=== PATIENT | male | born 1940 | race Caucasian/White ===

== ENCOUNTER 2017-01-23 15:02 | Observation (INO) ==
[2017-01-23] MEDS ORDERED: Tdap (ADACEL) Vaccine 0.5 ML IM ONE (15:23)
--- NOTE | 2017-01-23 15:25 | Emergency Department Note ---
Disposition Clinical Impression: Syncope Qualifiers: Syncope type: unspecified Qualified Code(s): R55 - Syncope and collapse Concussion with loss of consciousness Qualifiers: Encounter type: initial encounter Qualified Code(s): S06.0X9A - Concussion with loss of consciousness of unspecified duration, initial encounter Disposition: Admitted As Inpatient Condition: Fair Forms: ED Satisfaction Letter Head Injury HPI - General Chief complaint: ED Head Injury Stated complaint: Fall, AMS Time Seen by Provider: 01/23/17 15:03 Source: EMS Limitations: no limitations Nursing Notes Reviewed: Yes Vital Signs Reviewed: Yes - History of Present Illness HPI Narrative: Patient is a very pleasant 76-year-old male who was brought here by EMS for head injury. His states they are both at their office [place] he was outside spreading some fertilizer she walked outside to check on him and he was laying down in the driveway unconscious. The patient does not have any recollection of the event or preceding symptoms prior to. 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 Cardiovascular: Denies: chest pain Respiratory: Denies: dyspnea Gastrointestinal: Denies: abdominal pain, nausea Past Medical History - Past Medical History Medical history: Reports: GERD, hypertension, osteoporosis Psychiatric history: Reports: no psych history - Social History Smoking Status: Never smoker Smokeless Tobacco Status: No Alcohol use: Reports: occasionally Drug use: Reports: none Physical Exam - General Limitations: no limitations General appearance: alert, in no apparent distress - Head Head exam: other (Abrasion posterior scalp) - Eye Eye exam: Present: normal appearance, PERRL, EOMI - ENT ENT exam: normal exam, normal oropharynx, mucous membranes moist - Chest Chest inspection: Present: normal inspection, symmetric chest wall rise - Respiratory Respiratory exam: Present: normal lung sounds bilaterally - Cardiovascular Cardiovascular exam: Present: regular rate, normal rhythm, normal heart sounds - Abdominal Exam Abdominal exam: Present: soft, Non-Tender. Absent: tenderness, distention, guarding, rebound, rigidity - Neurological Exam Neurological exam: Present: alert. Absent: oriented X3 (Person and place) - Expanded Neurological Exam Patient oriented to: Present: person, place Speech: Present: fluid speech Motor strength - LUE: 5/5 Motor strength - RUE: 5/5 Motor strength - LLE: 5/5 Motor strength - RLE: 5/5 Coma Scale Eye Opening: Spontaneous Coma Scale Motor Response: Obeys Commands Coma Scale Verbal Response: Confused Coma Scale Total: 14 - Psychiatric Psychiatric exam: Present: normal mood - Skin Skin exam: Present: warm, dry Course Vital Signs Temperature 98.9 F 01/23/17 15:05 Pulse Rate 119 01/23/17 15:05 Respiratory Rate 16 01/23/17 15:05 Blood Pressure 121/72 01/23/17 15:05 O2 Sat by Pulse Oximetry 97 01/23/17 15:05 Temperature 98.9 F 01/23/17 15:05 Pulse Rate 99 01/23/17 16:48 Respiratory Rate 16 01/23/17 16:48 Blood Pressure 122/69 01/23/17 16:48 O2 Sat by Pulse Oximetry 96 01/23/17 16:48 Oxygen Delivery Oxygen Delivery Room Air Head Injury - Differential Diagnosis Differential Diagnosis: Likely: concussion without loss of consciousness, closed head injury, subarachnoid hematoma, postconcussion sydrome, subdural hematoma - Medical Records Medical records reviewed: Yes I reviewed the patient's medical records. - Lab Data Lab results reviewed: Yes I reviewed the patient's lab results. Result diagrams: 01/23/17 15:53 01/23/17 15:53 Lab Results 01/23/17 01/23/17 01/23/17 Range/Units 15:04 15:53 15:53 WBC 8.3 (4.3-11.1) K/mcL RBC 4.73 (4.19-5.50) M/mcL Hgb 13.6 (12.9-16.9) g/dL Hct 42.3 (37.5-50.1) % MCV 89.4 (83.0-100.0) fL MCH 28.8 (28.0-33.3) pg MCHC 32.2 (31.6-35.5) g/dL RDW 12.6 (11.5-14.5) % Plt Count 204 (140-400) K/mcL MPV 9.6 (9.4-12.4) fL Immature Gran % 1.2 (0-4) % Seg Neutrophils % 74.4 % Lymphocytes % 10.8 % Monocytes % 8.1 % Eosinophils % 4.5 % Basophils % 1.0 % Neutrophils # 6.2 (1.6-8.9) K/mcL Lymphocytes # 0.9 (0.6-4.6) K/mcL Monocytes # 0.7 (0.0-1.3) K/mcL Eosinophils # 0.4 (0.0-0.6) K/mcL Basophils # 0.1 (0.0-0.2) K/mcL PT 14.1 H (9.4-12.1) Seconds INR 1.3 APTT 30.2 (26.0-36.0) Seconds Sodium (136-145) mEq/L Potassium (3.5-4.5) mEq/L Chloride (98-109) mEq/L Carbon Dioxide (19-29) mEq/L BUN (8-26) mg/dL Creatinine (0.72-1.25) mg/dL Est GFR ( Amer) (> 60) Est GFR (Non-Af Amer) (> 60) BUN/Creatinine Ratio (6-26) Glucose (70-99) mg/dL POC Glucose 150 H (58-89) Calculated Osmolality (280-300) Calcium (8.6-10.8) mg/dL Troponin I (0-0.03) ng/mL 01/23/17 01/23/17 Range/Units 15:53 15:53 WBC (4.3-11.1) K/mcL RBC (4.19-5.50) M/mcL Hgb (12.9-16.9) g/dL Hct (37.5-50.1) % MCV (83.0-100.0) fL MCH (28.0-33.3) pg MCHC (31.6-35.5) g/dL RDW (11.5-14.5) % Plt Count (140-400) K/mcL MPV (9.4-12.4) fL Immature Gran % (0-4) % Seg Neutrophils % % Lymphocytes % % Monocytes % % Eosinophils % % Basophils % % Neutrophils # (1.6-8.9) K/mcL Lymphocytes # (0.6-4.6) K/mcL Monocytes # (0.0-1.3) K/mcL Eosinophils # (0.0-0.6) K/mcL Basophils # (0.0-0.2) K/mcL PT (9.4-12.1) Seconds INR APTT (26.0-36.0) Seconds Sodium 139 (136-145) mEq/L Potassium 3.4 L (3.5-4.5) mEq/L Chloride 106 (98-109) mEq/L Carbon Dioxide 28 (19-29) mEq/L BUN 14 (8-26) mg/dL Creatinine 1.19 (0.72-1.25) mg/dL Est GFR ( Amer) > 60 (> 60) Est GFR (Non-Af Amer) 59 L (> 60) BUN/Creatinine Ratio 12 (6-26) Glucose 159 H (70-99) mg/dL POC Glucose (58-89) Calculated Osmolality 292 (280-300) Calcium 9.4 (8.6-10.8) mg/dL Troponin I 0.01 (0-0.03) ng/mL - Radiology Data Radiology results reviewed: Yes I reviewed the patient's radiology results. - EKG Data EKG attestation: Yes I reviewed and interpreted this EKG. EKG shows normal: sinus rhythm Rate: normal Rhythm: PAC's
[2017-01-23 16:10] LABS: Basophils # 0.1 K/mcL (0.0-0.2); Eosinophils # 0.4 K/mcL (0.0-0.6); Eosinophils % 4.5 %; Hematocrit 42.3 % (37.5-50.1); Hemoglobin 13.6 g/dL (12.9-16.9); Immature Granulocytes % 1.2 % (0-4); Lymphocytes # 0.9 K/mcL (0.6-4.6); Lymphocytes % 10.8 %; Mean Corpuscular HGB Conc 32.2 g/dL (31.6-35.5); Mean Corpuscular Hemoglobin 28.8 pg (28.0-33.3); Mean Corpuscular Volume 89.4 fL (83.0-100.0); Mean Platelet Volume 9.6 fL (9.4-12.4); Monocytes # 0.7 K/mcL (0.0-1.3); Monocytes % 8.1 %; Neutrophils # 6.2 K/mcL (1.6-8.9); Platelet Count 204 K/mcL (140-400); Red Blood Count 4.73 M/mcL (4.19-5.50); Red Cell Distribution Width 12.6 % (11.5-14.5); Segmented Neutrophils % 74.4 %
[2017-01-23 16:20] LABS: INR 1.3; Prothrombin Time 14.1 Seconds (9.4-12.1)
[2017-01-23 16:23] LABS: Activated Partial Thrombo Time 30.2 Seconds (26.0-36.0)
[2017-01-23 16:24] LABS: BUN/Creatinine Ratio 12 (6-26); Blood Urea Nitrogen 14 mg/dL (8-26); Calcium 9.4 mg/dL (8.6-10.8); Carbon Dioxide 28 mEq/L (19-29); Chloride 106 mEq/L (98-109); Glucose 159 mg/dL (70-99); Osmolality,Calculated 292 (280-300); Potassium 3.4 mEq/L (3.5-4.5); Sodium 139 mEq/L (136-145); eGFR For African Americans > 60 (> 60); eGFR For Non-African Americans 59 (> 60)
[2017-01-23] MEDS ORDERED: traMADol 50 MG TABLET PO PRN (21:07)
[2017-01-23] MEDS ORDERED: *HR* LORazepam 0.5 MG TABLET PO PRN (21:07)
--- NOTE | 2017-01-23 21:12 | Internal Med History&Physical ---
Date of Encounter: 01/23/17 Time of Encounter: 21:11 Assessment and Plan (1) Concussion with loss of consciousness Current visit: Yes Status: Acute CT head is negative with no neurological deficits. CT head is negative for intracranial bleeding. Monitor. Consider neurology consultation Qualifiers: Encounter type: initial encounter Qualified Code(s): S06.0X9A - Concussion with loss of consciousness of unspecified duration, initial encounter (2) Syncope Current visit: Yes Status: Acute Likely mechanical fall based on pt's description. However, he had LOC. Telemetry monitoring; Echocardiogram. Trend troponins. Qualifiers: Syncope type: unspecified Qualified Code(s): R55 - Syncope and collapse (3) Scalp injury Current visit: Yes Status: Acute Cleaning and dressing in the ER. protective dressing Qualifiers: Encounter type: initial encounter Qualified Code(s): S09.90XA - Unspecified injury of head, initial encounter (4) Abnormal urinalysis Current visit: Yes Status: Acute Urine culture is pending. Pt is asymptomatic at this time - hold antibiotics until the cultures. (5) Hypertension Current visit: Yes Status: Chronic Continue home medications Qualifiers: Hypertension type: essential hypertension Qualified Code(s): I10 - Essential (primary) hypertension (6) GERD (gastroesophageal reflux disease) Current visit: Yes Status: Chronic Continue home medications Qualifiers: Esophagitis presence: esophagitis presence not specified Qualified Code(s) : K21.9 - Gastro-esophageal reflux disease without esophagitis Internal Medicine - H&P: HPI Chief complaint: Fall with LOC Admitted From: Emergency Dept Plans for Post Hospital Care: Home History of present illness: Mr. Velez is a 76 year old male with history of GERD, hypertension apparently fell backwards at their office while he was spreading fertilizer and stepped on a stone and lost balance. He denies feeling dizziness, lightheadedness, chest pain, headache, blurry vision prior to the fall. He apparently lost consciousness after the fall and was found by his . He reports being a little confused after he woke up, and remembers what happened subsequently. He reports some dull, non-radiating pain in the occipital region, at the site of scalp injury. He denies any denies headache, blurry vision, nausea, vomiting, weakness of extremities, urinary and bowel incontinence, chest pain, shortness of breath, palpitations, abdominal pain, dysuria, hematuria, change in bowel habits. He was evaluated in the emergency department and was reported to have scalp abration and had dressing done. CT head reported Scalp soft tissue swelling at the vertex. Atrophy and mild small vessel ischemic disease. CT scan of the C-spine reported Multilevel degenerative disc disease, without gross fracture. He is admitted to the hospitalist service for further management. Past Med Surg Social Fam HX - Past Medical History Medical history: GERD, hypertension, osteoporosis Psychiatric history: no psych history - Social History Smoking Status: Never smoker Smokeless Tobacco Status: No Alcohol use: occasionally Drug use: none - Additional Family History Additional family history: Family history reviewed and noncontributory to current admission Internal Medicine - H&P: Meds Azelastine 0.1% Nasal [place] [Astelin] 1 spray PRN 01/23/17 [History] Azelastine/Fluticasone [Dymista Nasal [place]] 1 spray PRN PRN 01/23/17 [History] Budesonide/Formoterol 80/4.5 [Symbicort 80/4.5] 1 PRN 01/23/17 [History] LORazepam [Ativan] 0.5 mg PO BID PRN 01/23/17 [History] Sucralfate [Carafate] 1 gm PO TID 01/23/17 [History] Tramadol HCl [Ultram] 1 tab PO DAILY PRN 01/23/17 [History] Tums 01/23/17 [History] Allergies No Known Allergies Allergy (Verified 12/18/15 15:13) All Systems PM: A 10-system review of systems was performed and is negative for pertinent findings except as documented above in the HPI. - Constitutional Vitals: Temp Pulse Resp BP Pulse Ox 98.2 F 91 20 143/84 95 01/23/17 18:35 01/23/17 18:35 01/23/17 18:35 01/23/17 18:35 01/23/17 18:35 Exam: General: Not in acute distress at the time of my evaluation HEENT: Oral mucosa is moist. No conjunctival palor or scleral icterus. Dressing on the scalp present Neck: No obvious neck swellings Lungs: Clear to auscultation Cardiac: Regular rate and rhythm. No significant murmurs Abdomen: Soft, non tender. Bowel sounds present Genitourinary: No schwartz catheter Neurological: Alert and oriented. No gross localizing deficits Psych: Not aggressive or agitated Extremities: no significant leg edema Skin: No generalized rash Internal Med - H&P Results - Labs CBC & Chem 7: 01/23/17 15:53 01/23/17 15:53 - EKG Data -: EKG Interpreted by Myself EKG shows normal: sinus rhythm Rate: tachycardia - EKG Data EKG comments: Left anterior fascicular block. EKG fron 08/2013 shows similar changes 01/24/17 05:34 - Impressions ITS Impressions Cervical Spine CT 01/23/17 15:04 IMPRESSION: Multilevel degenerative disc disease, without gross fracture. D/ / Jacques Garcia MD / Jacques Garcia MD Interpreting Provider: Jacques Garcia MD Head CT 01/23/17 15:04 IMPRESSION: Scalp soft tissue swelling at the vertex. Atrophy and mild small vessel ischemic disease. D/ / Jacques Garcia MD / Jacques Garcia MD Interpreting Provider: Jacques Garcia MD
[2017-01-23] MEDS ORDERED: Naloxone 0.4 MG/ML INJ IVP PRN (21:32)
[2017-01-23 23:39] LABS: Bilirubin,Urine Negative (Negative); Blood,Urine Small (Negative); Clarity,Urine Clear (Clear); Color,Urine Yellow (Yellow); Glucose,Urine (UA) Normal (Normal); Ketones,Urine Negative (Negative); Leukocyte Esterase,Urine Small (Negative); Nitrite,Urine Negative (Negative); PH,Urine 6.5 pH Units (5.0-8.0); Protein,Urine Negative (Neg-Trace); Specific Gravity,Urine 1.025 (1.010-1.025); Urobilinogen,Urine Normal (Normal)
[2017-01-24 00:02] LABS: Bacteria,Urine Few per hpf (None-Few); Hyaline Casts,Urine Few per lpf (None-Few); Mucus,Urine Moderate (Few); Squamous Epithelial Cell,Urine Few per lpf (None-Few); WBC,Urine 0-3 per hpf (0-3)
[2017-01-24 05:45] LABS: Hemoglobin A1C 4.7 %
[2017-01-24 05:55] LABS: Alanine Aminotransferase 11 Units/L (0-55); Albumin 3.2 g/dL (3.5-5.0); Alkaline Phosphatase 81 Units/L (38-126); Aspartate Amino Transferase 20 Units/L (5-34); BUN/Creatinine Ratio 14 (6-26); Bilirubin,Total 0.8 mg/dL (0.2-1.2); Blood Urea Nitrogen 14 mg/dL (8-26); Calcium 9.6 mg/dL (8.6-10.8); Carbon Dioxide 32 mEq/L (19-29); Chloride 106 mEq/L (98-109); Globulin 3.1 g/dL (2.4-3.5); Glucose 95 mg/dL (70-99); Osmolality,Calculated 288 (280-300); Potassium 3.5 mEq/L (3.5-4.5); Sodium 139 mEq/L (136-145); Total Protein 6.3 g/dL (6.0-8.3); eGFR For African Americans > 60 (> 60); eGFR For Non-African Americans > 60 (> 60)
[2017-01-24 07:27] VITALS: BP 159/87
[2017-01-24] MEDS: Sucralfate 1 GM TABLET PO SCH ×2 (08:14→15:07)
[2017-01-24] MEDS ORDERED: Budesonide/Formoterol 80/4.5 MDI IH SCH (13:00)
--- NOTE | 2017-01-24 15:40 | Electrocardiograph Report ---
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
--- NOTE | 2017-01-24 16:23 | Discharge Summary ---
Date of Encounter: 01/24/17 Time of Encounter: 10:30 (and 1530) - Discharge Diagnosis (1) Concussion with loss of consciousness Priority: Primary Status: Acute Comments: Cervical spine CT negative for acute processes. Head CT negative. Patient with abrasion to his scalp, no active bleeding. Wound dressing changed at time of discharge. Fall appears to be mechanical in nature with resultant loss of consciousness. Patient is alert and oriented 3 with no focal neurological deficits present on examination. Seen and evaluated by physical therapy who surmised he had no needs. ITS Impressions Cervical Spine CT 01/23/17 15:04 IMPRESSION: Multilevel degenerative disc disease, without gross fracture. D/ / Jacques Garcia MD / Jacques Garcia MD Interpreting Provider: Jacques Garcia MD Head CT 01/23/17 15:04 IMPRESSION: Scalp soft tissue swelling at the vertex. Atrophy and mild small vessel ischemic disease. D/ / Jacques Garcia MD / Jacques Garcia MD Interpreting Provider: Jacques Garcia MD Qualifiers: Encounter type: initial encounter Qualified Code(s): S06.0X9A - Concussion with loss of consciousness of unspecified duration, initial encounter (2) Syncope Priority: Primary Status: Resolved Qualifiers: Syncope type: unspecified Qualified Code(s): R55 - Syncope and collapse (3) Scalp injury Priority: Primary Status: Acute Comments: Removed bandage on day of discharge and scalp abrasion wound cleansed. Covered with Adaptic, no active bleeding. Recommend keeping open two air after 2 days. Qualifiers: Encounter type: initial encounter Qualified Code(s): S09.90XA - Unspecified injury of head, initial encounter (4) Abnormal urinalysis Priority: Primary Status: Acute Comments: Patient denies dysuria, likely contaminant. Patient is white instructed to call her primary care provider's office on Tuesday to obtain urine culture results. Low suspicion for urinary tract infection. (5) Hypertension Priority: Secondary Status: Chronic Comments: Controlled until day of discharge when he became borderline hypertensive. Of note, patient was anxious to go home on day of discharge. Recommend close outpatient follow-up and daily blood pressure checks at home. Qualifiers: Hypertension type: essential hypertension Qualified Code(s): I10 - Essential (primary) hypertension (6) GERD (gastroesophageal reflux disease) Priority: Secondary Status: Chronic Comments: Denies current symptoms. Qualifiers: Esophagitis presence: esophagitis presence not specified Qualified Code(s) : K21.9 - Gastro-esophageal reflux disease without esophagitis - Discharge Medications Home Medications: Azelastine 0.1% Nasal [place] [Astelin] 1 spray NS DAILY 01/23/17 [History] Azelastine/Fluticasone [Dymista Nasal [place]] 1 spray NS DAILY PRN 01/23/17 [ History] Calcium Carbonate [Tums] 1,000 mg PO Q4HR PRN 01/23/17 [History] LORazepam [Ativan] 0.5 mg PO BID PRN 01/23/17 [History] Sucralfate [Carafate] 1 gm PO TID 01/23/17 [History] Tramadol HCl [Ultram] 50 mg PO BID PRN 01/23/17 [History] Albuterol Sulfate [Albuterol Inhaler] 2 puff IH Q4-6H PRN 01/24/17 [History] Budesonide/Formoterol 160/4.5 [Symbicort 160/4.5] 2 puff IH BIDR 01/24/17 [ History] Losartan/HCTZ [Hyzaar 50-12.5 Tablet] 1 tab PO DAILY 01/24/17 [History] Tamsulosin [Flomax] 0.4 mg PO DAILY 01/24/17 [History] Allergies/Adverse Reactions: Allergies No Known Allergies Allergy (Verified 12/18/15 15:13) Procedures/tests Complete & Pending: Procedures Performed prior 72 hours Category Date Time Status EV echocardiogram Routine Y 01/24/17 04:58 Completed Date of admission: 01/23/17 17:34 Primary care physician: Alex Yusuf MD Consults: 01/23/17 21:40 PT [Consult to Physical Therapy] [CONS] Routine Comment: Evaluate, develop and implement POC Reason for Consult: Fall 01/24/17 04:58 Consult to Neurology [CONS] Routine Consulting Provider: [facility] Reason for Consult: Head injury with loss of consciousness Call Completed: No Discharging clinician: Leanne Shelton Anticipated date of discharge: 01/24/17 - Patient Status Disposition: Home, Self-Care Condition: Fair Functional capacity at discharge: uses cane/walker Overall status at discharge: patient is progressing back to baseline - Discharge Instructions Follow Up With: Alex Yusuf MD [Primary Care Provider] - Additional Instructions: Follow-up with primary care provider within one to 2 weeks, call primary care office in 2 days for urine culture results - Diet and Activity Activity: increase activity as tolerated Diet: low salt diet Hospital course: Mr. Velez is a 76 year old male with past medical history of GERD, hypertension. Patient presented to the emergency department chief complaint of fall with loss of consciousness. Patient stating he fell backwards at his office where he was spreading fertilizer when he stepped on a stone and lost his balance. He denies presyncopal sensations, dizziness, lightheadedness, chest pain, headache, or blurred vision prior to the fall. After the fall, he apparently lost consciousness and was found by his . His reports patient was a little bit confused after he woke up but he remembers what happened. Patient reporting dull, nonradiating pain today in the occipital region at the site of the scalp injury. He denies any blurred vision, nausea, vomiting, weakness. Workup in the emergency department unremarkable. Cervical spine CT negative. Head CT negative. Patient had an abrasion to the scalp. He was admitted to the hospitalist service for further evaluation and management. He remained alert and oriented 3 with no focal neurological weakness is present on examination during this admission. Echocardiogram unremarkable with ejection fraction of 50%. He did have a slightly abnormal urinalysis but denied dysuria. He was instructed to call his primary care provider 2 days after discharge for urine culture results. Low suspicion for a urinary tract infection. Patient stating he does not have a history of urinary tract infections. Scalp dressing removed and changed on day of discharge. Abrasion noted. No active bleeding. Patient was seen and evaluated by physical therapy recommended returning to his prior living situation. Patient does have a cane at home and he has been instructed to use it over the next week or so as he recovers. Neurology was on board during this admission who recommended outpatient follow-up and also using a cane for a week or so while he recovers. He was discharged home in stable condition with close outpatient follow-up recommended. ITS Impressions Cervical Spine CT 01/23/17 15:04 IMPRESSION: Multilevel degenerative disc disease, without gross fracture. D/ / Jacques Garcia MD / Jacques Garcia MD Interpreting Provider: Jacques Garcia MD Head CT 01/23/17 15:04 IMPRESSION: Scalp soft tissue swelling at the vertex. Atrophy and mild small vessel ischemic disease. D/ / Jacques Garcia MD / Jacques Garcia MD Interpreting Provider: Jacques Garcia MD Echocardiogram impressions: LVEF 50%. Borderline low systolic function, not all segments were visualized. Hematocrit citric left ventricular hypertrophy. Mild left ventricular diastolic dysfunction. No pulmonary hypertension. No significant valvular dysfunction. - Time Spent with Patient Total time spent providing and/or coordinating discharge services: - Constitutional Vitals: Temp Pulse Resp BP Pulse Ox 98.4 F 81 16 159/87 94 01/24/17 07:26 01/24/17 07:26 01/24/17 07:26 01/24/17 07:26 01/24/17 08:19 General appearance: Present: A&O X 3, pleasant, no acute distress, answers questions appropriately - Head Head exam: Present: atraumatic, normocephalic - Eye Eye exam: Present: PERRL, conjuntiva pink, sclera anicteric Pupils: Present: PERRL - Neck Neck exam general surgery: Present: supple, trachea midline. Absent: lymphadenopathy - Respiratory Respiratory exam: Present: CTAB. Absent: accessory muscle use, rales, respiratory distress, rhonchi, wheezes - Cardiovascular Cardiovascular exam: Present: RRR, +S1, +S2. Absent: diastolic murmur, gallop, rubs, systolic murmur - GI/Abdominal GI/Abdominal exam: Present: normal bowel sounds, soft, no peritoneal signs. Absent: distended, tenderness - Extremities Exam Extremities exam: Present: warm, radial pulses palpable and symetrical. Absent : calf tenderness, cyanotic, pedal edema - Neurological Exam Neurological exam: Present: alert, CN II-XII intact, normal gait, oriented X3, no focal deficits, strengths equal and symetr throughout. Absent: pronater drift, facial droop, speech deficit - Skin Skin exam: Present: dry, intact, normal color, warm - Expanded Skin Exam Type of lesion: Present: abrasion Distribution of rash: Present: head Description of rash: Present: discharge (serous), erythematous, tenderness - VTE Reasons for not Prescribing Prophylaxis: Treatment not Indicated - Low risk for VTE
--- NOTE | 2017-01-24 16:45 | Neurology - Consult Note ---
Date of Encounter: 01/24/17 Time of Encounter: 16:42 Assessment and Plan (1) Concussion with loss of consciousness Current Visit: Yes Status: Acute I agree that this gentleman has experienced a minor concussion. He did have an altered level of consciousness on the scene however, has improved in the subsequent hours back to baseline. I would recommend however that he and released with a cane for the next week or so just to improve his gait stability. However this point in time he is alert and oriented 3 and lucid. He may be discharged home with your discretion. I did inform his that if he begins to experience lethargy or any alteration from his baseline that she should return to the ED for further assessment at once. Qualifiers: Encounter type: initial encounter Qualified Code(s): S06.0X9A - Concussion with loss of consciousness of unspecified duration, initial encounter History of Present Illness HPI: Mr. Velez is a 76 year old male who was seen for neurologic consultation secondary to a fall with subsequent concussion. 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 His consciousness was altered for a few moments. His was working nearby came to his age and he was very confused on the scene. He was confused for most of the day yesterday. However he is now close to being normal. Appetite is awake alert and lucid history. He does have some tenderness at the crown of his head secondary to scalp contusion. CT scan of the head did reveal a soft tissue injury at the vertex however did not reveal any evidence of brain injury. Past Med Surg Social Fam HX - Past Medical History Medical history: GERD, hypertension, osteoporosis Psychiatric history: no psych history - Social History Smoking Status: Never smoker Smokeless Tobacco Status: No Alcohol use: occasionally Drug use: none Medications and Allergies Azelastine 0.1% Nasal [place] [Astelin] 1 spray NS DAILY 01/23/17 [History] Azelastine/Fluticasone [Dymista Nasal [place]] 1 spray NS DAILY PRN 01/23/17 [ History] Calcium Carbonate [Tums] 1,000 mg PO Q4HR PRN 01/23/17 [History] LORazepam [Ativan] 0.5 mg PO BID PRN 01/23/17 [History] Sucralfate [Carafate] 1 gm PO TID 01/23/17 [History] Tramadol HCl [Ultram] 50 mg PO BID PRN 01/23/17 [History] Albuterol Sulfate [Albuterol Inhaler] 2 puff IH Q4-6H PRN 01/24/17 [History] Budesonide/Formoterol 160/4.5 [Symbicort 160/4.5] 2 puff IH BIDR 01/24/17 [ History] Losartan/HCTZ [Hyzaar 50-12.5 Tablet] 1 tab PO DAILY 01/24/17 [History] Tamsulosin [Flomax] 0.4 mg PO DAILY 01/24/17 [History] Allergies No Known Allergies Allergy (Verified 12/18/15 15:13) All Systems: A 10-system review of systems was performed and is negative for pertinent findings except as documented above in the HPI. Review of Systems: A 10 point review of systems is consistent with a history of present illness and otherwise negative. Physical Examination - Vital Signs Vital Signs: Initial Vital Signs Temp Pulse Resp BP Pulse Ox 98.9 F 119 16 121/72 97 01/23/17 15:05 01/23/17 15:05 01/23/17 15:05 01/23/17 15:05 01/23/17 15:05 - Neurologic Sensorimotor examination: intact Detailed motor examination: grossly full strength in all extremities Reflex and gait examination: intact Reflexes: Biceps: 2+, Triceps: 2+, Brachioradialis: 2+, Patella: 2+, Achilles: 1 + Mental Status Examination: awake, alert, oriented to person, oriented to place, oriented to time, follows commands appropriately, answers questions appropriately, no agnosia, no aphasia, no aproxia Cranial nerve examination: PERRL, EOMI, visual howell intact, corneal reflexes brisk symmetrically, sensory to face intact, mastication intact, no facial asymmetry is present, no dysarthria, hearing is intact symmetrically, soft palate elevates bilaterally upon phonation, gag reflex intact, flexes SCM and trapezius muscles symmetrically with full power, tongue protrudes midline, no atrophy or facial fasiculations present Cerebellar examination: no dysmetria, performs finger to nose and heel to lynn symmetrically without ataxia, no gait ataxia, no truncal ataxia, no difficulty with rapid alternating movements Results - Laboratory Findings CBC and BMP: 01/23/17 15:53 01/24/17 04:48 Abnormal lab findings: Abnormal lab results PT 14.1 Seconds (9.4-12.1) H 01/23/17 15:53 Carbon Dioxide 32 mEq/L (19-29) H 01/24/17 04:48 POC Glucose 150 (58-89) H 01/23/17 15:04 Albumin 3.2 g/dL (3.5-5.0) L 01/24/17 04:48 Albumin/Globulin Ratio 1.0 (1.1-2.2) L 01/24/17 04:48 Urine Blood Small (Negative) H 01/23/17 22:13 Ur Leukocyte Esterase Small (Negative) H 01/23/17 22:13 Urine Microscopic RBC 5-15 per hpf (0-3) H 01/23/17 22:13 Urine Mucus Moderate (Few) H 01/23/17 22:13 Ur Culture Indicated? YES (NO) A 01/23/17 22:13 Consult Discharge Plan - Plan Additional Instructions: Follow-up with primary care provider within one to 2 weeks, call primary care office in 2 days for urine culture results Referrals: Alex Yusuf MD [Primary Care Provider] -
--- NOTE | 2017-01-26 10:00 | Event Note ---
Date of Encounter: 01/26/17 Time of Encounter: 09:50 Patient's urine culture result come back shows Pseudomonas aerugino. Patient was called. Patient said some people from the ER has called him already and ask him to take prescription from ER. Patient has minimal symptoms. Patient was educated to drink plenty of water. If he did not get prescription, he will go to see his PCP for prescription.
== END 2017-01-24 16:57 | disposition home or self-care (01) ==
LOC: 3BNU 15:02 → EMEROO 15:02 → 3BNU 18:18
PROVIDERS: ADMIT Internal Medicine; ATTEND Nurse Practitioner Family

== ENCOUNTER 2017-06-08 13:24 | Inpatient (IN) ==
[2017-06-08 14:41] LABS: Basophils # 0.1 K/mcL (0.0-0.2); Basophils % 0.7 %; Eosinophils # 0.5 K/mcL (0.0-0.6); Eosinophils % 4.5 %; Hematocrit 42.6 % (37.5-50.1); Hemoglobin 13.8 g/dL (12.9-16.9); Immature Granulocytes % 0.8 % (0-4); Lymphocytes # 0.8 K/mcL (0.6-4.6); Lymphocytes % 8.3 %; Mean Corpuscular HGB Conc 32.4 g/dL (31.6-35.5); Mean Corpuscular Hemoglobin 29.8 pg (28.0-33.3); Mean Platelet Volume 9.8 fL (9.4-12.4); Monocytes # 0.6 K/mcL (0.0-1.3); Neutrophils # 8.1 K/mcL (1.6-8.9); Platelet Count 217 K/mcL (140-400); Red Blood Count 4.63 M/mcL (4.19-5.50); Red Cell Distribution Width 12.8 % (11.5-14.5); Segmented Neutrophils % 79.7 %
[2017-06-08 14:47] LABS: BUN/Creatinine Ratio 11 (6-26); Blood Urea Nitrogen 11 mg/dL (8-26); Calcium 9.3 mg/dL (8.6-10.8); Carbon Dioxide 27 mEq/L (19-29); Chloride 105 mEq/L (98-109); Glucose 143 mg/dL (70-99); Osmolality,Calculated 290 (280-300); Potassium 3.5 mEq/L (3.5-4.5); Sodium 139 mEq/L (136-145); eGFR For African Americans > 60 (> 60); eGFR For Non-African Americans > 60 (> 60)
--- NOTE | 2017-06-08 14:51 | Emergency Department Note ---
Disposition Clinical Impression: Femoral neck fracture Qualifiers: Encounter type: initial encounter Fracture type: closed Laterality: right Qualified Code(s): S72.001A - Fracture of unspecified part of neck of right femur, initial encounter for closed fracture Syncope Qualifiers: Syncope type: unspecified Qualified Code(s): R55 - Syncope and collapse Disposition: Admitted As Inpatient Condition: Good Time of Disposition: 16:56 General Adult HPI - General Chief complaint: ED Fall Stated complaint: fall Time Seen by Provider: 06/08/17 13:26 Source: patient, EMS Mode of arrival: EMS Limitations: no limitations Nursing Notes Reviewed: Yes Vital Signs Reviewed: Yes - History of Present Illness HPI Narrative: 77-year-old male presenting to the emergency department via EMS after a fall. He states he is having right shoulder pain, right hip pain and right leg pain. Patient states he was walking up a set of concrete stairs at work when he slipped and fell landing on his right side. Patient's is at bedside. Patient denies passing out or hitting his head but according to the when she was called by his coworkers they stated they found him outside Of the staircase after he fell and that he was passed out. Patient and state he is on a blood thinner but does not know what it is. I looked at all of his medication list and cannot find any specific medication. On physical exam patient does have right hip and right posterior shoulder pain. He denies any other pain at this time. He denies any chest pain, shortness of breath, dizziness. Pain Scale: 9 - Related Data Home Medications Medication Instructions Recorded Confirmed Azelastine 0.1% Nasal [place] 1 spray NS DAILY 01/23/17 06/08/17 [Astelin] Azelastine/Fluticasone [Dymista 1 spray NS DAILY PRN 01/23/17 06/08/17 Nasal [place]] Calcium Carbonate [Tums] 1,000 mg PO Q4HR PRN 01/23/17 06/08/17 LORazepam [Ativan] 0.5 mg PO BID PRN 01/23/17 06/08/17 Sucralfate [Carafate] 1 gm PO BID 01/23/17 06/08/17 Tramadol HCl [Ultram] 50 mg PO BID PRN 01/23/17 06/08/17 Albuterol Sulfate [Albuterol 2 puff IH Q4-6H PRN 01/24/17 06/08/17 Inhaler] Losartan/HCTZ [Hyzaar 50-12.5 1 tab PO DAILY 01/24/17 06/08/17 Tablet] Tamsulosin [Flomax] 0.4 mg PO DAILY 01/24/17 06/08/17 Ascorbate Calcium [Vitamin C] 500 mg PO DAILY 06/08/17 06/08/17 Aspirin [Lo-Dose Aspirin EC] 81 mg PO DAILY 06/08/17 06/08/17 Budesonide/Formoterol 80/4.5 2 puff IH BID 06/08/17 06/08/17 [Symbicort 80/4.5] Cholecalciferol (D-3) [Vitamin D] 2,000 unit PO DAILY 06/08/17 06/08/17 Famotidine [Pepcid] 40 mg PO DAILY 06/08/17 06/08/17 Ferrous Gluconate 324 mg PO DAILY 06/08/17 06/08/17 Fluticasone Propionate Nasal 1 spray NS DAILY 06/08/17 06/08/17 [Flonase] Montelukast [Singulair] 10 mg PO DAILY 06/08/17 06/08/17 Omeprazole [PriLOSEC] 20 mg PO DAILY 06/08/17 06/08/17 Allergies Allergy/AdvReac Type Severity Reaction Status Date / Time No Known Allergies Allergy Verified 06/08/17 17:01 All systems ED: reviewed and negative except as stated. Constitutional: Denies: fever, chills Eyes: Reports: as per HPI ENT ED: Reports: as per HPI Cardiovascular: Denies: chest pain, palpitations Respiratory: Denies: cough, dyspnea, wheezes Gastrointestinal: Denies: abdominal pain, nausea, vomiting Genitourinary: Reports: as per HPI Musculoskeletal: Reports: other (Hip, shoulder pain) Integumentary: Reports: abrasion Neurological: Reports: as per HPI Psychiatric: Reports: as per HPI Endocrine: Reports: as per HPI Hematological/Lymphatic: Reports: as per HPI Allergic/Immunologic: Reports: as per HPI Past Medical History - Past Medical History Attestation: Yes The following information was validated with the patient. Medical history: Reports: GERD, hypertension, osteoporosis Psychiatric history: Reports: no psych history - Social History Smoking Status: Never smoker Smokeless Tobacco Status: No Alcohol use: Reports: occasionally Drug use: Reports: none Physical Exam - General Limitations: no limitations General appearance: alert, in no apparent distress - Head Head exam: atraumatic, normocephalic, normal inspection - Eye Eye exam: Present: normal appearance, PERRL, EOMI. Absent: scleral icterus, conjunctival injection - Neck Neck exam: Present: normal inspection, full ROM. Absent: tenderness, meningismus - Chest Chest inspection: Present: normal inspection, symmetric chest wall rise. Absent : tenderness, rash - Respiratory Respiratory exam: Present: normal lung sounds bilaterally. Absent: respiratory distress, wheezes - Cardiovascular Cardiovascular exam: Present: regular rate (I appreciate the tachycardia noted in the triage notes although the patient is not tachycardic in the room when I had examined him), normal rhythm, normal heart sounds - Abdominal Exam Abdominal exam: Present: soft, Non-Tender. Absent: distention, guarding, rebound - Extremities Exam Extremities exam: Present: full ROM, other (Tenderness noted over the right greater trochanter and mid right femur. Superficial abrasion noted over the right knee but no tenderness. Patient's bilateral lower extremity muscle strength 5 out of 5. Bilateral lower extremity sensation intact. Bilateral lower extremity distal pulses 2+. Patient's right leg is slightly shortened and externally rotated. Patient has tenderness on palpation to the posterior scapular spine. No obvious abrasion, dislocation or crepitus.) - Neurological Exam Neurological exam: Present: alert, oriented X3 - Psychiatric Psychiatric exam: Present: normal affect, normal mood - Skin Skin exam: Present: warm, intact Course Course Narrative: 69-year-old male presented to the emergency department after a fall. He states he has right hip and leg pain. According to patient did pass out and possibly could have hit his head. Unknown if the patient is actually on anticoagulation or not. Due to unknown mechanism of fall we will obtain a CT of the head, cervical spine, thoracic spine and lumbar spine. We will also obtain an x-ray of the right hip, pelvis, femur and right shoulder. We will also obtain basic lab work along with an EKG to determine patient's cause of syncope. Patient is alert and oriented 3 in the room with stable vital signs at this time. He agrees with this plan. Disposition pending these results. - Reevaluation(s) Reevaluation #1: Patient has a right femoral neck fracture. I spoke with the orthopedic surgeon on-call Dr. Montes who agrees to see the patient as an inpatient. His like us to defer admission to the hospitalist. I spoke with the hospitalist on-call Dr. Colbert who agrees to accept the patient at this time. Patient is alert and oriented 3 in the room. Pain under control with IV morphine. Vital signs are stable. He agreed to this plan. Vital Signs Temperature 98.6 F 06/08/17 13:25 Pulse Rate 111 06/08/17 13:25 Respiratory Rate 18 06/08/17 13:25 Blood Pressure 173/90 06/08/17 13:25 O2 Sat by Pulse Oximetry 97 06/08/17 13:25 Temperature 98.6 F 06/08/17 13:25 Pulse Rate 87 06/08/17 16:55 Respiratory Rate 16 06/08/17 16:55 Blood Pressure 153/87 06/08/17 16:55 O2 Sat by Pulse Oximetry 97 06/08/17 16:55 Oxygen Delivery Oxygen Delivery Room Air Medical Decision Making - Medical Records Medical records reviewed: Yes I reviewed the patient's medical records. - Lab Data Lab results reviewed: Yes I reviewed the patient's lab results. Result diagrams: 06/08/17 14:27 06/08/17 14:27 Lab Results 06/08/17 06/08/17 06/08/17 Range/Units 14:27 14:27 14:27 WBC 10.2 (4.3-11.1) K/mcL RBC 4.63 (4.19-5.50) M/mcL Hgb 13.8 (12.9-16.9) g/dL Hct 42.6 (37.5-50.1) % MCV 92.0 (83.0-100.0) fL MCH 29.8 (28.0-33.3) pg MCHC 32.4 (31.6-35.5) g/dL RDW 12.8 (11.5-14.5) % Plt Count 217 (140-400) K/mcL MPV 9.8 (9.4-12.4) fL Immature Gran % 0.8 (0-4) % Seg Neutrophils % 79.7 % Lymphocytes % 8.3 % Monocytes % 6.0 % Eosinophils % 4.5 % Basophils % 0.7 % Neutrophils # 8.1 (1.6-8.9) K/mcL Lymphocytes # 0.8 (0.6-4.6) K/mcL Monocytes # 0.6 (0.0-1.3) K/mcL Eosinophils # 0.5 (0.0-0.6) K/mcL Basophils # 0.1 (0.0-0.2) K/mcL PT 13.0 H (9.4-12.1) Seconds INR 1.2 APTT 30.5 (26.0-36.0) Seconds Sodium 139 (136-145) mEq/L Potassium 3.5 (3.5-4.5) mEq/L Chloride 105 (98-109) mEq/L Carbon Dioxide 27 (19-29) mEq/L BUN 11 (8-26) mg/dL Creatinine 0.98 (0.72-1.25) mg/dL Est GFR ( Amer) > 60 (> 60) Est GFR (Non-Af Amer) > 60 (> 60) BUN/Creatinine Ratio 11 (6-26) Glucose 143 H (70-99) mg/dL Calculated Osmolality 290 (280-300) Calcium 9.3 (8.6-10.8) mg/dL Troponin I (0-0.03) ng/mL Urine Color (Yellow) Urine Clarity (Clear) Urine pH (5.0-8.0) pH Units Ur Specific [place] (1.010-1.025) Urine Protein (Neg-Trace) mg/dL Urine Glucose (UA) (Normal) mg/dL Urine Ketones (Negative) mg/dL Urine Blood (Negative) Urine Nitrite (Negative) Urine Bilirubin (Negative) Urine Urobilinogen (Normal) mg/dL Ur Leukocyte Esterase (Negative) Ur Culture Indicated? (NO) 06/08/17 06/08/17 Range/Units 14:27 15:30 WBC (4.3-11.1) K/mcL RBC (4.19-5.50) M/mcL Hgb (12.9-16.9) g/dL Hct (37.5-50.1) % MCV (83.0-100.0) fL MCH (28.0-33.3) pg MCHC (31.6-35.5) g/dL RDW (11.5-14.5) % Plt Count (140-400) K/mcL MPV (9.4-12.4) fL Immature Gran % (0-4) % Seg Neutrophils % % Lymphocytes % % Monocytes % % Eosinophils % % Basophils % % Neutrophils # (1.6-8.9) K/mcL Lymphocytes # (0.6-4.6) K/mcL Monocytes # (0.0-1.3) K/mcL Eosinophils # (0.0-0.6) K/mcL Basophils # (0.0-0.2) K/mcL PT (9.4-12.1) Seconds INR APTT (26.0-36.0) Seconds Sodium (136-145) mEq/L Potassium (3.5-4.5) mEq/L Chloride (98-109) mEq/L Carbon Dioxide (19-29) mEq/L BUN (8-26) mg/dL Creatinine (0.72-1.25) mg/dL Est GFR ( Amer) (> 60) Est GFR (Non-Af Amer) (> 60) BUN/Creatinine Ratio (6-26) Glucose (70-99) mg/dL Calculated Osmolality (280-300) Calcium (8.6-10.8) mg/dL Troponin I 0.01 (0-0.03) ng/mL Urine Color Yellow (Yellow) Urine Clarity Clear (Clear) Urine pH 7.5 (5.0-8.0) pH Units Ur Specific [place] 1.012 (1.010-1.025) Urine Protein Negative (Neg-Trace) mg/dL Urine Glucose (UA) Normal (Normal) mg/dL Urine Ketones Negative (Negative) mg/dL Urine Blood Negative (Negative) Urine Nitrite Negative (Negative) Urine Bilirubin Negative (Negative) Urine Urobilinogen Normal (Normal) mg/dL Ur Leukocyte Esterase Negative (Negative) Ur Culture Indicated? NO (NO) - Radiology Data Radiology results reviewed: Yes I reviewed the patient's radiology results. Femur X-Ray 06/08/17 13:44 IMPRESSION: Right femoral neck fracture. D/ / Gonzalez Eubanks / Gonzalez Eubanks Interpreting Provider: Gonzalez Eubanks Pelvis X-Ray 06/08/17 13:44 IMPRESSION: Acute right femoral neck fracture as above. D/ / Indio Huang MD / Indio Huang MD Interpreting Provider: Indio Huang MD Shoulder X-Ray 06/08/17 13:44 IMPRESSION: No fracture or malalignment. D/ / Gonzalez Eubanks / Gonzalez Eubanks Interpreting Provider: Gonzalez Eubanks Cervical Spine CT 06/08/17 13:46 IMPRESSION: 1. No evidence of an acute fracture in the cervical spine. 2. Air-fluid level in the left sphenoid sinus, correlate with signs of acute infection. D/ / 06/08/2017 15:37:37 Nayan Peterson MD / Kim Orellana Interpreting Provider: Nayan Peterson MD Chest X-Ray 06/08/17 13:46 IMPRESSION: No acute cardiopulmonary process. D/ / Josue Torres MD / Josue Torres MD Interpreting Provider: Josue Torres MD Head CT 06/08/17 13:46 IMPRESSION: No acute intracranial abnormality. D/ / Chris Kingsley MD / Chris Kingsley MD Interpreting Provider: Chris Kingsley MD Lumbar Spine CT 06/08/17 13:46 IMPRESSION: No acute osseous abnormality. Multilevel degenerative changes of the lumbar spine. Osteopenia. D/ / 06/08/2017 15:39:12 Josue Torres MD / Kim Orellana Interpreting Provider: Josue Torres MD Thoracic Spine CT 06/08/17 13:46 IMPRESSION: No acute fracture or traumatic malalignment of the thoracic spine. D/ / Choco Storey MD / Choco Storey MD Interpreting Provider: Choco Storey MD - EKG Data EKG #1 EKG attestation: Yes I reviewed and interpreted this EKG. EKG results narrative: Sinus rhythm with PACs and PVCs. Left anterior fascicular block. Ventricular rate 92 bpm. QRS 110, QTc 4:30. No signs of acute ST segment elevation or ischemia. When compared to previous EKG completed on 01/23/2017 new PACs noted. Attestation Statement - Attestation Attestation: I examined this patient and my medical decision-making was reviewed with the Resident Physician, Dr. Oliveros. I agree with the documented findings, disposition and treatment plan as described except to the extent set forth below. She is a 77-year-old white male who presents to the emergency department by EMS from his place of employment after he sustained a fall today. Patient states that he was walking up a set of concrete steps into his workplace and lost his footing and fell onto his right side. Patient is complaining on arrival of right hip pain and right thigh pain and right shoulder pain since the fall. Patient has deformity noted to the right hip with shortening and external rotation suspicious for right hip fracture. Patient denies any headache, no neck pain or back pain, no chest pain or pressure no shortness of breath no back or flank pain. When arrives she was concerned because she states that she spoke with his coworkers by phone and that they were concerned that they felt that he had passed out, causing him to fall. Patient denies this. Patient denies being on any blood thinners. Vital signs stable on arrival. Agree patient's physical exam findings as documented. Patient was placed on lunchroom monitor and continuous pulse ox IV was established and labs were drawn and sent and an EKG was obtained due to the questionable syncope. Patient with a sinus rhythm with occasional PACs and PVCs but no acute ischemic changes were appreciated. Patient had a lab evaluation including a chest x-ray, right shoulder right hip and pelvis plain films were ordered as well as CT imaging of his head and C-spine thoracic spine and lumbar spine. Patient was placed in cervical collar for C-spine immobilization. Patient was provided IV pain medicine and nausea medicine. All of patient's labs are within normal limits. All of patient's imaging is unremarkable with the exception of his hip and pelvis which shows a right femoral neck fracture. We went ahead and placed Cro[place] catheter due to patient' s injury and paged orthopedics. Patient has not seen an orthopedic surgeon in the past for any reason. Discuss results with family and explained need for admission for further evaluation and surgical management. Case was discussed with Dr. Mayes and he was consulate from the ED. Case was also discussed with Dr. Montes who accepted the patient for admission and will be consult on by orthopedics. Patient's remained hemodynamically stable and resting comfortably at bedside at this time.
[2017-06-08 15:18] LABS: INR 1.2
[2017-06-08 15:21] LABS: Activated Partial Thrombo Time 30.5 Seconds (26.0-36.0)
[2017-06-08] MEDS ORDERED: Ondansetron 4 MG/2 ML VIAL IVP ONE (15:26)
[2017-06-08] MEDS ORDERED: *HR* Morphine 2 MG/ML SYRINGE IVP ONE ×3 (15:26→20:29)
[2017-06-08 15:45] LABS: Bilirubin,Urine Negative (Negative); Blood,Urine Negative (Negative); Clarity,Urine Clear (Clear); Color,Urine Yellow (Yellow); Glucose,Urine (UA) Normal (Normal); Ketones,Urine Negative (Negative); Leukocyte Esterase,Urine Negative (Negative); Nitrite,Urine Negative (Negative); PH,Urine 7.5 pH Units (5.0-8.0); Protein,Urine Negative (Neg-Trace); Specific Gravity,Urine 1.012 (1.010-1.025); Urobilinogen,Urine Normal (Normal)
[2017-06-08] MEDS ORDERED: Ondansetron 4 MG/2 ML VIAL IVP PRN (20:45)
[2017-06-08] MEDS ORDERED: Acetaminophen 325 MG TABLET PO PRN (20:45)
[2017-06-08] MEDS ORDERED: Naloxone 0.4 MG/ML INJ IVP PRN (20:45)
[2017-06-08] MEDS ORDERED: FLUTICASONE NS PRN (20:50)
[2017-06-08] MEDS ORDERED: AZELASTINE NS PRN (20:50)
[2017-06-08] MEDS ORDERED: *HR* LORazepam 0.5 MG TABLET PO PRN (20:50)
[2017-06-08] MEDS: Budesonide/Formoterol 80/4.5 MDI IH SCH (21:16)
[2017-06-08] MEDS: Sucralfate 1 GM TABLET PO SCH (21:28)
[2017-06-08] MEDS: 0.9 % Sodium Chloride w KCl 20 MEQ/1,000 ML MLS IVC SCH (21:28)
--- NOTE | 2017-06-08 22:14 | Internal Med History&Physical ---
Date of Encounter: 06/08/17 Time of Encounter: 20:10 Assessment and Plan (1) Femoral neck fracture Current visit: Yes Status: Acute 1. Consult orthopedics for surgical repair. However, I would postpone surgery until carotid Dopplers are performed and cardiology sees patient in consultation regarding possible cardiac cause for suspected syncope. 2. Pain control with IV Morphine and/or oral Oxycodone. 3. Will need PT/OT consults after surgery and likely inpatient rehab. Qualifiers: Encounter type: initial encounter Fracture type: closed Laterality: right Qualified Code(s): S72.001A - Fracture of unspecified part of neck of right femur, initial encounter for closed fracture (2) Syncope Current visit: Yes Status: Suspected 1. Patient denies syncope but and office staff both report syncopal spell. 2. Recent ECHO reviewed. 3. Will order Carotid Dopplers and monitor glucose for 24 hours. 4. Consult cardiology regarding possible atrial fibrillation vs other dysrhythmia. Qualifiers: Syncope type: unspecified Qualified Code(s): R55 - Syncope and collapse (3) Hypertension Current visit: No Status: Chronic 1. Continue home meds as appropriate. 2. Monitor BP and adjust medications as necessary. Qualifiers: Hypertension type: essential hypertension Qualified Code(s): I10 - Essential (primary) hypertension (4) GERD (gastroesophageal reflux disease) Current visit: No Status: Chronic 1. Continue home PPI and H2 blockers. 2. Patient denies any GI blood loss for over 1 year. Qualifiers: Esophagitis presence: esophagitis presence not specified Qualified Code(s) : K21.9 - Gastro-esophageal reflux disease without esophagitis (5) DVT prophylaxis Current visit: Yes Status: Acute 1. Heparin SQ. Internal Medicine - H&P: HPI Chief complaint: s/p fall; hip fracture; possible syncope Admitted From: Emergency Dept Plans for Post Hospital Care: Transfer Inp Rehab Fac History of present illness: Mr. Velez is a 77 year old male who presents to the ER today after sustaining a fall at his office at work today. He denies any syncope or presyncopal symptoms leading to his fall. He states it was a mechanical fall as he slipped on a concrete step going up to his office earlier today. He denies any lightheadedness, dizziness, palpitations, chest pain, or shortness of breath. However, there are reports that his office staff found him on the steps passed out after the fall. He denies any loss of consciousness, however. His is present and she confirms the concerns of his office staff regarding possible syncope. Of note, he was admitted in January of this year for a similar situation involving a fall and possible syncope. He had an echocardiogram done in January which revealed LVH and likely hypertensive heart disease. He had significant ectopy on his telemetry and EKGs then suggesting possible atrial fibrillation. However, it appeared to be more likely sinus rhythm with frequent ectopy. He arjun never been diagnosed with atrial fibrillation or any heart disease other than blood pressure problems. He did not have any imaging of his CAROTID vasculature in the past. ER today revealed patient to have fracture of his right hip. Other imaging studies were all negative for any acute injury or fracture. I did confirm with patient, his , and his daughter that he is not on any anticoagulation whatsoever. He takes a baby aspirin every other day. Past Med Surg Social Fam HX - Past Medical History Attestation: Yes The following information was validated with the patient. Source: patient, old records reviewed, obtained from family Medical history: GERD, GI bleed (~ 1 year ago -- gastric ulcer), hypertension, osteoporosis Psychiatric history: no psych history - Past Surgical History Surgical History: other (EGD) - Social History Smoking Status: Never smoker Smokeless Tobacco Status: No Alcohol use: occasionally Drug use: none Current living situation: Home, With Family Activity Level: Independent ambulation Recent Out of Country Travel Within the Last 8 Weeks: No - Family History Mother Living Status: Hx Family Cardiac Disorders: Yes (Hypertension) Father Living Status: Hx Family Neurologic Disorders: Yes (Parkinsons) Internal Medicine - H&P: Meds Azelastine 0.1% Nasal [place] [Astelin] 1 spray NS DAILY 01/23/17 [History] Azelastine/Fluticasone [Dymista Nasal [place]] 1 spray NS DAILY PRN 01/23/17 [ History] Calcium Carbonate [Tums] 1,000 mg PO Q4HR PRN 01/23/17 [History] LORazepam [Ativan] 0.5 mg PO BID PRN 01/23/17 [History] Sucralfate [Carafate] 1 gm PO BID 01/23/17 [History] Tramadol HCl [Ultram] 50 mg PO BID PRN 01/23/17 [History] Albuterol Sulfate [Albuterol Inhaler] 2 puff IH Q4-6H PRN 01/24/17 [History] Losartan/HCTZ [Hyzaar 50-12.5 Tablet] 1 tab PO DAILY 01/24/17 [History] Tamsulosin [Flomax] 0.4 mg PO DAILY 01/24/17 [History] Ascorbate Calcium [Vitamin C] 500 mg PO DAILY 06/08/17 [History] Aspirin [Lo-Dose Aspirin EC] 81 mg PO DAILY 06/08/17 [History] Budesonide/Formoterol 80/4.5 [Symbicort 80/4.5] 2 puff IH BID 06/08/17 [History ] Cholecalciferol (D-3) [Vitamin D] 2,000 unit PO DAILY 06/08/17 [History] Famotidine [Pepcid] 40 mg PO DAILY 06/08/17 [History] Ferrous Gluconate 324 mg PO DAILY 06/08/17 [History] Fluticasone Propionate Nasal [Flonase] 1 spray NS DAILY 06/08/17 [History] Montelukast [Singulair] 10 mg PO DAILY 06/08/17 [History] Omeprazole [PriLOSEC] 20 mg PO DAILY 06/08/17 [History] 3 Allergy/AdvReac Type Severity Reaction Status Date / Time No Known Allergies Allergy Verified 06/08/17 17:01 - Constitutional Constitutional: no chills, no fever(s), no malaise - EENT Eyes: no blurry vision, no change in vision Ears: no decreased hearing, no tinnitus Nose, mouth and throat: no nasal congestion, no nasal discharge, no sinus pressure, no sore throat - Cardiovascular Cardiovascular ROS IM: no chest pain, no dyspnea, no dyspnea on exertion, no edema, no irregular heart rhythm, no lightheadedness, no orthopnea, no palpitations, no syncope (patient denies, but reports) - Respiratory Respiratory: no cough, no hemoptysis, no dyspnea on exertion, no wheezing, no chest congestion, no excessive phlegm production - Gastrointestinal Gastrointestinal: no abdominal pain, no diarrhea, no hematemesis, no hematochezia, no melena, no nausea, no vomiting - Genitourinary Genitourinary ROS male: no dysuria, no flank pain, no hematuria - Musculoskeletal Musculoskeletal ROS IM: other (severe pain in right hip), no back pain - Integumentary Integumentary IM: no rash, no jaundice - Neurological Neurological ROS: frequent falls (twice since January -- requiring hospitalization) , no dizziness, no focal weakness, no weakness - Psychiatric Psychiatric: no anxiety, no depression - Endocrine Endocrine IM: no polydipsia, no polyuria - Allergic/Immunologic Allergic/Immunologic: no wheezing, no GI upset with certain foods - Constitutional Vitals: Temp Pulse Resp BP Pulse Ox 98.9 F 86 16 165/86 94 06/08/17 19:01 06/08/17 19:01 06/08/17 21:16 06/08/17 19:01 06/08/17 21:16 General appearance: Present: cooperative, mild distress (from hip pain), A&O X 3 , pleasant, answers questions appropriately - Head Head exam: Present: atraumatic, normal inspection - Expanded Head Exam Head exam expanded: Absent: abrasion, contusion, general tenderness - Eye Eye exam: Present: EOMI, normal appearance, PERRL. Absent: scleral icterus Pupils: Present: normal accommodation - ENT ENT exam: Present: mucous membranes dry, normal exam, normal oropharynx - Neck Neck exam general surgery: Present: full ROM, supple, trachea midline. Absent: tenderness, nuchal rigidity - Expanded Neck Exam Neck exam: Absent: carotid bruit - Respiratory Respiratory exam: Present: CTAB. Absent: chest wall tenderness, rales, respiratory distress, rhonchi, wheezes - Cardiovascular Cardiovascular exam: Present: RRR, +S1, +S2. Absent: diastolic murmur, JVD, systolic murmur Additional comments: frequent ectopic beats noted on auscultation - GI/Abdominal GI/Abdominal exam: Present: normal bowel sounds, soft. Absent: guarding, hepatomegaly, mass, rebound, splenomegaly, tenderness - Extremities Exam Extremities exam: Present: normal capillary refill, tenderness (right hip), warm , radial pulses palpable and symmetrical. Absent: calf tenderness, pedal edema - Back Exam Back exam: Absent: CVA tenderness (L), CVA tenderness (R) - Neurological Exam Neurological exam: Present: alert, CN II-XII intact, oriented X3, no focal deficits, strengths equal and symetr throughout - Psychiatric Psychiatric exam: Present: normal affect, normal mood - Skin Skin exam: Present: dry, warm. Absent: rash Internal Med - H&P Results - Labs CBC & Chem 7: 06/08/17 14:27 06/08/17 14:27 - EKG Data -: EKG Interpreted by Myself - EKG Data Prior EKG available for review: yes When compared to previous EKG: there is no significant change EKG comments: 06/08/17 22:20 sinus rhythm with frequent PAC/PVC's vs atrial fibrillation - Diagnostic Studies Chest x-ray Status: image reviewed by me (negative)
[2017-06-09] MEDS: *HR* OxyCODONE Immed Rel 5 MG TABLET PO PRN ×3 (00:21→18:06)
[2017-06-09] MEDS: *HR* Morphine 2 MG/ML SYRINGE IVP PRN ×4 (03:05→15:27)
[2017-06-09] MEDS: *HR* Heparin 5,000 UNIT/ML VIAL SQ SCH ×2 (05:21→18:06)
[2017-06-09 05:41] LABS: Basophils # 0.1 K/mcL (0.0-0.2); Basophils % 0.7 %; Eosinophils # 0.6 K/mcL (0.0-0.6); Eosinophils % 4.9 %; Hematocrit 42.7 % (37.5-50.1); Immature Granulocytes % 0.3 % (0-4); Lymphocytes # 1.1 K/mcL (0.6-4.6); Lymphocytes % 9.6 %; Mean Corpuscular HGB Conc 32.8 g/dL (31.6-35.5); Mean Corpuscular Hemoglobin 29.7 pg (28.0-33.3); Mean Corpuscular Volume 90.5 fL (83.0-100.0); Monocytes # 0.9 K/mcL (0.0-1.3); Monocytes % 8.2 %; Neutrophils # 8.6 K/mcL (1.6-8.9); Platelet Count 201 K/mcL (140-400); Red Blood Count 4.72 M/mcL (4.19-5.50); Red Cell Distribution Width 12.8 % (11.5-14.5); Segmented Neutrophils % 76.3 %
[2017-06-09 05:42] LABS: INR 1.3; Prothrombin Time 13.9 Seconds (9.4-12.1)
[2017-06-09 05:44] LABS: Activated Partial Thrombo Time 32.5 Seconds (26.0-36.0)
[2017-06-09 06:25] LABS: Alanine Aminotransferase 14 Units/L (0-55); Albumin 3.2 g/dL (3.5-5.0); Albumin/Globulin Ratio 0.9 (1.1-2.2); Alkaline Phosphatase 77 Units/L (38-126); Aspartate Amino Transferase 22 Units/L (5-34); BUN/Creatinine Ratio 12 (6-26); Bilirubin,Total 1.1 mg/dL (0.2-1.2); Blood Urea Nitrogen 10 mg/dL (8-26); Calcium 8.9 mg/dL (8.6-10.8); Carbon Dioxide 24 mEq/L (19-29); Chloride 107 mEq/L (98-109); Globulin 3.4 g/dL (2.4-3.5); Glucose 108 mg/dL (70-99); Osmolality,Calculated 286 (280-300); Sodium 138 mEq/L (136-145); Total Protein 6.6 g/dL (6.0-8.3); eGFR For African Americans > 60 (> 60); eGFR For Non-African Americans > 60 (> 60)
[2017-06-09] MEDS: Budesonide/Formoterol 80/4.5 MDI IH SCH ×2 (07:56→20:25)
--- NOTE | 2017-06-09 08:21 | Internal Med Progress Note ---
Date of Encounter: 06/09/17 Time of Encounter: 08:19 - Assessment and plan (1) Syncope Current Visit: No Status: Resolved Assessment and plan: cardiology consulted for syncopebut patient denies syncope Qualifiers: Syncope type: unspecified Qualified Code(s): R55 - Syncope and collapse (2) Hypertension Current Visit: No Status: Chronic Assessment and plan: chronic will resume home meds Qualifiers: Hypertension type: essential hypertension Qualified Code(s): I10 - Essential (primary) hypertension (3) GERD (gastroesophageal reflux disease) Current Visit: No Status: Chronic Assessment and plan: chronic resume home meds Qualifiers: Esophagitis presence: esophagitis presence not specified Qualified Code(s) : K21.9 - Gastro-esophageal reflux disease without esophagitis (4) Femoral neck fracture Current Visit: Yes Status: Acute Assessment and plan: floowing fall ortho is consulted for surgical evaluation Qualifiers: Encounter type: initial encounter Fracture type: closed Laterality: right Qualified Code(s): S72.001A - Fracture of unspecified part of neck of right femur, initial encounter for closed fracture - Subjective Interval history: Patient with history of hypertension, GERD, patient apparently slipped and fell in the office and sustained a fracture of femoral neck of the right hip. Patient denies syncope no loss of consciousness. Patient awaiting orthopedic evaluation for the hip fracture for possible surgery. Denies any chest pain no shortness of breath no palpitation only symptoms right hip pain. - Constitutional Vitals: Temp Pulse Resp BP Pulse Ox 98.8 F 104 16 146/83 96 06/09/17 06:34 06/09/17 06:34 06/09/17 06:34 06/09/17 06:34 06/09/17 06:34 General appearance: Present: cooperative, mild distress (from hip pain), A&O X 3 , pleasant, answers questions appropriately - Eye Eye exam: Present: PERRL, conjuntiva pink, sclera anicteric Pupils: Present: PERRL - Neck Neck exam general surgery: Present: supple, trachea midline. Absent: lymphadenopathy - Respiratory Respiratory exam: Present: CTAB. Absent: accessory muscle use, rales, rhonchi, wheezes - Cardiovascular Cardiovascular exam: Present: RRR, +S1, +S2. Absent: diastolic murmur, gallop, rubs, systolic murmur - GI/Abdominal GI/Abdominal exam: Present: normal bowel sounds, soft, no peritoneal signs. Absent: distended, tenderness - Extremities Exam Extremities exam: Present: tenderness Internal Medicine: Result - Labs CBC & Chem 7: 06/09/17 05:17 06/09/17 05:17 Labs: Short CBC 06/09/17 Range/Units 05:17 WBC 11.3 H (4.3-11.1) K/mcL Hgb 14.0 (12.9-16.9) g/dL Hct 42.7 (37.5-50.1) % Plt Count 201 (140-400) K/mcL Neutrophils # 8.6 (1.6-8.9) K/mcL BMP 06/09/17 05:17 Sodium 138 Potassium 4.0 Chloride 107 Carbon Dioxide 24 BUN 10 Creatinine 0.83 Glucose 108 H Calcium 8.9 Liver Function 06/09/17 Range/Units 05:17 Total Bilirubin 1.1 (0.2-1.2) mg/dL AST 22 (5-34) Units/L ALT 14 (0-55) Units/L Alkaline Phosphatase 77 (38-126) Units/L Albumin 3.2 L (3.5-5.0) g/dL - ABG Interpretation ABG results: PT/INR, D-dimer PT 13.9 Seconds (9.4-12.1) H 06/09/17 05:17 Consult Discharge Plan - Plan Referrals: Alex Yusuf MD [Primary Care Provider] -
[2017-06-09] MEDS ORDERED: Azelastine 0.1% Nasal Spray 30 ML BOTTLE NS SCH (09:00)
[2017-06-09] MEDS ORDERED: Famotidine 20 MG TABLET PO SCH (09:00)
[2017-06-09] MEDS ORDERED: Fluticasone Propionate Nasal 50 MCG/SPRAY BOTTLE NS SCH (09:00)
[2017-06-09] MEDS ORDERED: Ascorbic Acid 500 MG TABLET PO SCH (09:00)
[2017-06-09] MEDS ORDERED: Aspirin Enteric Coated 81 MG Tablet PO SCH (09:00)
[2017-06-09] MEDS ORDERED: Cholecalciferol (D-3) 1,000 UNIT TABLET PO SCH (09:00)
[2017-06-09] MEDS: Sucralfate 1 GM TABLET PO SCH ×2 (09:32→20:18)
--- NOTE | 2017-06-09 10:13 | Cardiology Consult Note ---
<Michael Watts - Last Filed: 06/09/17 16:19> Date of Encounter: 06/09/17 Time of Encounter: 09:52 Assessment and Plan (1) Recurrent falls Current Visit: Yes Status: Acute Patient on continuous cardiac telemetry. Monitoring for arrhythmic tracings through [facility]. Carotid doppler ordered by primary team. No history of stroke, unless significant bilateral stenosis, unlikely source of syncope. Echocardiogram 01/24/2017 shows LVEF 50%, mild diastolic dysfunction, no valvular defects. Plan: Workup for cardiogenic/vascular syncope through cardiac telemetry reading through [facility], consider new echocardiogram though no new anginal equivalents. R hemiarthroplasty with ortho planned for early afternoon tomorrow. Patient low-moderate risk. Recommend patient follow-up outpatient, [facility], will discuss more holter/event monitor options then. (2) Femoral neck fracture Current Visit: Yes Status: Acute R femoral neck fracture. Pt low-moderate risk. No hx NV/CAD/Stroke. H&H stable. Never-smoker. METs > 4. Ortho plans to perform R hemiarthroplasty tomorrow afternoon. 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 Chronic condition, takes Losartan Potassium-HCTZ 50-12.5 MG Tablet 1 tablet Once a day Qualifiers: Hypertension type: essential hypertension Qualified Code(s): I10 - Essential (primary) hypertension Discussion w patient/family: The assessment and plan as outlined above was discussed with the patient and/or family members who expressed understanding and agreement. All questions were answered. Thank you for involving us in the care of your patient. Please call with any questions. History of Present Illness Consult date: 06/09/17 Requesting physician: Neil Morocho Consult reason: Arrhythmia eval, pre-surg risk strat Chief complaint: Fall, R hip pain History of present illness: Mr. Velez is a 77 year old male, no known history of NV/CAD/Stroke, never- smoker, who presented via EMS to ED yesterday after fall, witnessed by coworkers at his [employer] office, patient stepping up concrete stairs, denies loss of consciousness. CT pelvis shows R femoral neck fracture. Other CT imaging unremarkable. Has recent history of prior fall with hospitalization in January of this year. Echocardiogram at the time showed LVEF 50%, mild diastolic dysfunction, no valvular abnormalities. Cardiology consulted for possibility of as of yet unknown arrhythmia/cardiac cause in relation to fall. Past Med Surg Social Fam HX - Past Medical History Medical history: GERD, GI bleed (~ 1 year ago -- gastric ulcer), hypertension, osteoporosis Psychiatric history: no psych history - Past Surgical History Surgical History: other (EGD) - Social History Smoking Status: Never smoker Smokeless Tobacco Status: No Alcohol use: occasionally Drug use: none - Family History Mother Living Status: Hx Family Cardiac Disorders: Yes (Hypertension) Father Living Status: Hx Family Neurologic Disorders: Yes (Parkinsons) Medications and Allergies Azelastine 0.1% Nasal [place] [Astelin] 1 spray NS DAILY 01/23/17 [History] Azelastine/Fluticasone [Dymista Nasal [place]] 1 spray NS DAILY PRN 01/23/17 [ History] Calcium Carbonate [Tums] 1,000 mg PO Q4HR PRN 01/23/17 [History] LORazepam [Ativan] 0.5 mg PO BID PRN 01/23/17 [History] Sucralfate [Carafate] 1 gm PO BID 01/23/17 [History] Tramadol HCl [Ultram] 50 mg PO BID PRN 01/23/17 [History] Albuterol Sulfate [Albuterol Inhaler] 2 puff IH Q4-6H PRN 01/24/17 [History] Losartan/HCTZ [Hyzaar 50-12.5 Tablet] 1 tab PO DAILY 01/24/17 [History] Tamsulosin [Flomax] 0.4 mg PO DAILY 01/24/17 [History] Ascorbate Calcium [Vitamin C] 500 mg PO DAILY 06/08/17 [History] Aspirin [Lo-Dose Aspirin EC] 81 mg PO DAILY 06/08/17 [History] Budesonide/Formoterol 80/4.5 [Symbicort 80/4.5] 2 puff IH BID 06/08/17 [History ] Cholecalciferol (D-3) [Vitamin D] 2,000 unit PO DAILY 06/08/17 [History] Famotidine [Pepcid] 40 mg PO DAILY 06/08/17 [History] Ferrous Gluconate 324 mg PO DAILY 06/08/17 [History] Fluticasone Propionate Nasal [Flonase] 1 spray NS DAILY 06/08/17 [History] Montelukast [Singulair] 10 mg PO DAILY 06/08/17 [History] Omeprazole [PriLOSEC] 20 mg PO DAILY 06/08/17 [History] 3 Allergy/AdvReac Type Severity Reaction Status Date / Time No Known Allergies Allergy Verified 06/08/17 17:01 All Systems Review: A 10-system review of systems was performed and is negative for pertinent findings except as documented above in the HPI. - Constitutional Constitutional: no headache(s), no weakness - Cardiovascular Cardiovascular: no chest pain at rest, no dyspnea on exertion, no lightheadedness, no palpitations - Musculoskeletal Musculoskeletal: other (R hip pain, limited ROM) Physical Examination Vital Signs, Last 4 Hours Temp Pulse Resp BP Pulse Ox 06/09/17 06:34 98.8 F 104 16 146/83 96 General: Other (a&o x3; conversant) HEENT: Atraumatic, Other (no contusions head) Neck: Other (no audible bruits, no JVD) Cardiac: Other (RRR, S1/S2, no S3/S4, no murmur) Lungs: No Wheeze, Rales, Rhonchi Extremities: Other (normal pedal pulses bilaterally, no numbness/tingling; limited ROM R LE) Results 06/09/17 05:17 06/09/17 05:17 Lab Results 06/09/17 06/09/17 06/09/17 05:17 05:17 05:17 WBC 11.3 H Hgb 14.0 Hct 42.7 Plt Count 201 INR 1.3 APTT 32.5 Sodium 138 Potassium 4.0 Chloride 107 Carbon Dioxide 24 BUN 10 Creatinine 0.83 Glucose 108 H Calcium 8.9 Magnesium 2.0 Total Bilirubin 1.1 AST 22 ALT 14 Alkaline Phosphatase 77 Consult Discharge Plan - Plan Referrals: Alex Yusuf MD [Primary Care Provider] - <Garo Ramires - Last Filed: 06/09/17 17:10> Date of Encounter: 06/09/17 - Attending Attestation I examined this patient and my medical decision-making was reviewed with the Resident Physician. I agree with the documented findings, disposition and treatment plan as described except to the extent set forth below. Admitted with mechanical fall, denies syncope. ECHO normal. PVCs, PACs noted. No anginal symptoms. Could proceed with surgery, further workup as outpt. (EM vs. LOOP) Assessment and Plan Discussion w patient/family: The assessment and plan as outlined above was discussed with the patient and/or family members who expressed understanding and agreement. All questions were answered. Thank you for involving us in the care of your patient. Please call with any questions. History of Present Illness History of present illness: Mr. Velez is a 77 year old male All Systems Review: A 10-system review of systems was performed and is negative for pertinent findings except as documented above in the HPI. Physical Examination Vital Signs, Last 4 Hours Temp Pulse Resp BP Pulse Ox 06/09/17 15:04 99.2 F 97 18 161/83 94 Results 06/09/17 05:17 06/09/17 05:17 Lab Results 06/09/17 06/09/17 06/09/17 05:17 05:17 05:17 WBC 11.3 H Hgb 14.0 Hct 42.7 Plt Count 201 INR 1.3 APTT 32.5 Sodium 138 Potassium 4.0 Chloride 107 Carbon Dioxide 24 BUN 10 Creatinine 0.83 Glucose 108 H Calcium 8.9 Magnesium 2.0 Total Bilirubin 1.1 AST 22 ALT 14 Alkaline Phosphatase 77
--- NOTE | 2017-06-09 11:19 | Orthopedic Consult Note ---
Date of Encounter: 06/09/17 Time of Encounter: 09:00 Assessment and Plan (1) Displaced fracture of right femoral neck Current Visit: Yes Status: Acute Right hip femoral neck fracture, [place] 4 type. The patient is currently undergoing a cardiac workup. He is scheduled for a right hip hemiarthroplasty. The risks, benefits and alternatives were discussed the patient. Informed consent was obtained. We also discussed his expected postoperative management. History of Present Illness Chief complaint: Right hip pain HPI: Mr. Velez is a 77 year old male who is a community ambulator, yesterday sustaining a right hip fracture. The patient states he was trying to open the door to his office with a diez when he slipped on the step, falling over and breaking his right hip. The patient states he did not have dizziness prior to the fall, and denies loss of consciousness after the fall. He reports no chest pain or shortness of breath. Does report moderate pain to the right hip. The patient lives at home with his . Past Med Surg Social Fam HX - Past Medical History Medical history: GERD, GI bleed (~ 1 year ago -- gastric ulcer), hypertension, osteoporosis Psychiatric history: no psych history - Past Surgical History Surgical History: other (EGD) - Social History Smoking Status: Never smoker Smokeless Tobacco Status: No Alcohol use: occasionally Drug use: none - Family History Mother Living Status: Hx Family Cardiac Disorders: Yes (Hypertension) Father Living Status: Hx Family Neurologic Disorders: Yes (Parkinsons) Medications and Allergies Azelastine 0.1% Nasal [place] [Astelin] 1 spray NS DAILY 01/23/17 [History] Azelastine/Fluticasone [Dymista Nasal [place]] 1 spray NS DAILY PRN 01/23/17 [ History] Calcium Carbonate [Tums] 1,000 mg PO Q4HR PRN 01/23/17 [History] LORazepam [Ativan] 0.5 mg PO BID PRN 01/23/17 [History] Sucralfate [Carafate] 1 gm PO BID 01/23/17 [History] Tramadol HCl [Ultram] 50 mg PO BID PRN 01/23/17 [History] Albuterol Sulfate [Albuterol Inhaler] 2 puff IH Q4-6H PRN 01/24/17 [History] Losartan/HCTZ [Hyzaar 50-12.5 Tablet] 1 tab PO DAILY 01/24/17 [History] Tamsulosin [Flomax] 0.4 mg PO DAILY 01/24/17 [History] Ascorbate Calcium [Vitamin C] 500 mg PO DAILY 06/08/17 [History] Aspirin [Lo-Dose Aspirin EC] 81 mg PO DAILY 06/08/17 [History] Budesonide/Formoterol 80/4.5 [Symbicort 80/4.5] 2 puff IH BID 06/08/17 [History ] Cholecalciferol (D-3) [Vitamin D] 2,000 unit PO DAILY 06/08/17 [History] Famotidine [Pepcid] 40 mg PO DAILY 06/08/17 [History] Ferrous Gluconate 324 mg PO DAILY 06/08/17 [History] Fluticasone Propionate Nasal [Flonase] 1 spray NS DAILY 06/08/17 [History] Montelukast [Singulair] 10 mg PO DAILY 06/08/17 [History] Omeprazole [PriLOSEC] 20 mg PO DAILY 06/08/17 [History] 3 Allergy/AdvReac Type Severity Reaction Status Date / Time No Known Allergies Allergy Verified 06/08/17 17:01 All Systems Reviewed: A 10-system review of systems was performed and is negative for pertinent findings except as documented above in the HPI. - Musculoskeletal Musculoskeletal: as per HPI Physical Exam - Constitutional Vitals: Temp Pulse Resp BP Pulse Ox 98.8 F 104 16 146/83 96 06/09/17 06:34 06/09/17 06:34 06/09/17 06:34 06/09/17 06:34 06/09/17 06:34 General appearance IM: A&O X 3, no acute distress, answers questions appropriately Exam: Head normocephalic atraumatic Neck is supple and nontender Examination of bilateral upper extremities: No tenderness over the long bones or joints, skin is intact, no swelling patient moves all joints appropriately, neurovascularly was intact in both hands. Left lower extremity: Normal appearance,hip, knee and ankle well without pain Right lower extremity: Mild swelling and erythema and groin, right lower extremity is shortened external rotated. Patient is tender anterior groin and painful attempted range of motion. He is able to dorsiflex and plantarflex the ankle well as well as the toes. Sensation intact. Dorsalis pedis pulse 2+. Posterior tibialis pulses 2+. Results - Labs Result Diagrams: 06/09/17 05:17 06/09/17 05:17 Labs: Abnormal lab results WBC 11.3 K/mcL (4.3-11.1) H 06/09/17 05:17 PT 13.9 Seconds (9.4-12.1) H 06/09/17 05:17 Glucose 108 mg/dL (70-99) H 06/09/17 05:17 POC Glucose 116 (58-89) H 06/09/17 08:14 Albumin 3.2 g/dL (3.5-5.0) L 06/09/17 05:17 Albumin/Globulin Ratio 0.9 (1.1-2.2) L 06/09/17 05:17 H & H 06/09/17 Range/Units 05:17 Hgb 14.0 (12.9-16.9) g/dL Hct 42.7 (37.5-50.1) % All other labs normal. - Diagnostic results Hip AP/Lateral x-ray: image reviewed (Displaced right hip femoral neck fracture. Osteoarthritis noted of the left hip but none on the right side.) Consult Discharge Plan - Plan Referrals: Alex Yusuf MD [Primary Care Provider] -
[2017-06-09] MEDS: 0.9 % Sodium Chloride w KCl 20 MEQ/1,000 ML MLS IVC SCH (12:03)
[2017-06-09] MEDS: diazePAM 2 MG TABLET PO PRN ×2 (13:18→20:17)
--- NOTE | 2017-06-09 18:40 | Anesthesia Evaluation PreOp ---
Date of Encounter: 06/10/17 Time of Encounter: 13:07 - Past History Planned Operation: right becky hip Cardiac History: HTN Pulmonary History: Denies Any Significant HX STUDY SPECIALIST History: Syncope (had episode in January this year and associated with this admission, maybe reason for his fall. He denies but apparently feels he was syncopal.), Other (concussion 01/24) Other Medical History: GERD Anesthesia History: No Prior Anesthetic Complications, Past Anesthesia (EGD) Alcohol Use: occasionally Drug use: none Medications and Allergies Azelastine 0.1% Nasal [place] [Astelin] 1 spray NS DAILY 01/23/17 [History] Azelastine/Fluticasone [Dymista Nasal [place]] 1 spray NS DAILY PRN 01/23/17 [ History] Calcium Carbonate [Tums] 1,000 mg PO Q4HR PRN 01/23/17 [History] LORazepam [Ativan] 0.5 mg PO BID PRN 01/23/17 [History] Sucralfate [Carafate] 1 gm PO BID 01/23/17 [History] Tramadol HCl [Ultram] 50 mg PO BID PRN 01/23/17 [History] Albuterol Sulfate [Albuterol Inhaler] 2 puff IH Q4-6H PRN 01/24/17 [History] Losartan/HCTZ [Hyzaar 50-12.5 Tablet] 1 tab PO DAILY 01/24/17 [History] Tamsulosin [Flomax] 0.4 mg PO DAILY 01/24/17 [History] Ascorbate Calcium [Vitamin C] 500 mg PO DAILY 06/08/17 [History] Aspirin [Lo-Dose Aspirin EC] 81 mg PO DAILY 06/08/17 [History] Budesonide/Formoterol 80/4.5 [Symbicort 80/4.5] 2 puff IH BID 06/08/17 [History ] Cholecalciferol (D-3) [Vitamin D] 2,000 unit PO DAILY 06/08/17 [History] Famotidine [Pepcid] 40 mg PO DAILY 06/08/17 [History] Ferrous Gluconate 324 mg PO DAILY 06/08/17 [History] Fluticasone Propionate Nasal [Flonase] 1 spray NS DAILY 06/08/17 [History] Montelukast [Singulair] 10 mg PO DAILY 06/08/17 [History] Omeprazole [PriLOSEC] 20 mg PO DAILY 06/08/17 [History] 3 Allergy/AdvReac Type Severity Reaction Status Date / Time No Known Allergies Allergy Verified 06/08/17 17:01 - Meds/Allergy Pre-op Review Medications Reviewed: Yes Allergies Reviewed: Yes Beta Blockers on Current Med List: No Anesthesia Results - Labs 06/09/17 05:17 06/10/17 04:48 - Imaging EKG: report reviewed (01/24: SINUS TACHYCARDIA WITH OCCASIONAL SUPRAVENTRICULAR PREMATURE COMPLEXES LEFT ANTERIOR FASCICULAR BLOCK) Additional studies: echo 01/2017: Impressions: LVEF 50%. Borderline low systolic function, not all segments well visualized. Mild concentric left ventricular hypertrophy. Mild left ventricular diastolic dysfunction. No pulmonary hypertension. No significant valvular dysfunction. Cardiology consult: Plan: Workup for cardiogenic/vascular syncope through cardiac telemetry reading through [facility], consider new echocardiogram though no new anginal equivalents. R hemiarthroplasty with ortho planned for early afternoon tomorrow. Patient low-moderate risk. Recommend patient follow-up outpatient, [facility], will discuss more holter/event monitor options then. Anesthesia Exam Selected Entries 06/09/17 15:04 Temperature 99.2 F Pulse Rate 97 Respiratory Rate 18 Blood Pressure 161/83 O2 Sat by Pulse Oximetry 94 Weight: 91kg - HEENT Pupil (Motor): EOMI Mallampati: II Teeth: Normal Oral Opening: Greater than 3 - STUDY SPECIALIST LOC: Oriented STUDY SPECIALIST Motor: Normal RUE, Normal LUE, Normal RLE, Normal LLE, Normal Face STUDY SPECIALIST Sensory: Normal: RUE, LUE, RLE, LLE, Face - Cardiac Rhythm: Regular Murmur: None - Pulmonary Breath Sounds: bilateral Clear Respiratory Effort: Symmetrical Anesthesia Assess/Plan ASA Score: 2 Modified Cristian Scale for Level of Consciousness: Cooperative, oriented, and tranquil Anesthetic Plan: General Monitoring Plan: Standard Monitors Recovery Plan: PACU (discussed GA, agrees to proceed)
[2017-06-10] MEDS ORDERED: 0.9 % Sodium Chloride w KCl 20 MEQ/1,000 ML MLS IVC SCH ×2 (01:45→16:05)
[2017-06-10 05:22] LABS: BUN/Creatinine Ratio 14 (6-26); Blood Urea Nitrogen 12 mg/dL (8-26); Calcium 8.7 mg/dL (8.6-10.8); Carbon Dioxide 24 mEq/L (19-29); Chloride 107 mEq/L (98-109); Glucose 106 mg/dL (70-99); Osmolality,Calculated 284 (280-300); Sodium 137 mEq/L (136-145); eGFR For African Americans > 60 (> 60); eGFR For Non-African Americans > 60 (> 60)
[2017-06-10] MEDS: diazePAM 2 MG TABLET PO PRN (06:40)
[2017-06-10] MEDS: Budesonide/Formoterol 80/4.5 MDI IH SCH ×2 (08:07→20:17)
[2017-06-10] MEDS: *HR* Morphine 2 MG/ML SYRINGE IVP PRN ×2 (08:15→11:25)
[2017-06-10] MEDS ORDERED: *HR* Propofol 200 MG/20 ML VIAL IVP ONE (12:44)
[2017-06-10] MEDS ORDERED: *HR* FentaNYL (PF) 100 MCG/2 ML VIAL ONE ×2 (12:44→14:01)
--- NOTE | 2017-06-10 13:03 | Anesthesia Evaluation PreOp ---
Date of Encounter: 06/10/17 Time of Encounter: 13:00 - Past History Planned Operation: Hip Hemiarthroplasty Anesthesia History: Past Anesthesia Alcohol Use: occasionally Drug use: none Medications and Allergies Azelastine 0.1% Nasal [place] [Astelin] 1 spray NS DAILY 01/23/17 [History] Azelastine/Fluticasone [Dymista Nasal [place]] 1 spray NS DAILY PRN 01/23/17 [ History] Calcium Carbonate [Tums] 1,000 mg PO Q4HR PRN 01/23/17 [History] LORazepam [Ativan] 0.5 mg PO BID PRN 01/23/17 [History] Sucralfate [Carafate] 1 gm PO BID 01/23/17 [History] Tramadol HCl [Ultram] 50 mg PO BID PRN 01/23/17 [History] Albuterol Sulfate [Albuterol Inhaler] 2 puff IH Q4-6H PRN 01/24/17 [History] Losartan/HCTZ [Hyzaar 50-12.5 Tablet] 1 tab PO DAILY 01/24/17 [History] Tamsulosin [Flomax] 0.4 mg PO DAILY 01/24/17 [History] Ascorbate Calcium [Vitamin C] 500 mg PO DAILY 06/08/17 [History] Aspirin [Lo-Dose Aspirin EC] 81 mg PO DAILY 06/08/17 [History] Budesonide/Formoterol 80/4.5 [Symbicort 80/4.5] 2 puff IH BID 06/08/17 [History ] Cholecalciferol (D-3) [Vitamin D] 2,000 unit PO DAILY 06/08/17 [History] Famotidine [Pepcid] 40 mg PO DAILY 06/08/17 [History] Ferrous Gluconate 324 mg PO DAILY 06/08/17 [History] Fluticasone Propionate Nasal [Flonase] 1 spray NS DAILY 06/08/17 [History] Montelukast [Singulair] 10 mg PO DAILY 06/08/17 [History] Omeprazole [PriLOSEC] 20 mg PO DAILY 06/08/17 [History] 3 Allergy/AdvReac Type Severity Reaction Status Date / Time No Known Allergies Allergy Verified 06/08/17 17:01 - Meds/Allergy Pre-op Review Medications Reviewed: Yes Allergies Reviewed: Yes Beta Blockers on Current Med List: No Anesthesia Results - Labs 06/09/17 05:17 06/10/17 04:48 Laboratory Tests 06/09/17 05:17 PT 13.9 H INR 1.3 APTT 32.5 Anesthesia Exam Vital Signs/O2 Sat/Glucose, Most Recent Temp Pulse Resp BP Pulse Ox 98.7 F 83 16 144/73 95 06/10/17 10:33 06/10/17 10:33 06/10/17 10:33 06/10/17 10:33 06/10/17 10:33 Blood Glucose* 121 Height: 6'1''/1.85 m Weight: 20 lbs/90.7 kg NPO (# of Hours): 8 Pain Scale: 0 Pain Scale Used: Numeric (1 - 10)
[2017-06-10] MEDS ORDERED: Naloxone 0.4 MG/ML INJ IVP PRN ×3 (13:14→16:05)
[2017-06-10] MEDS ORDERED: Ondansetron 4 MG/2 ML VIAL IVP ONE (13:14)
[2017-06-10] MEDS ORDERED: Dexamethasone 4 MG/ML VIAL ONE (13:28)
[2017-06-10] MEDS ORDERED: Lidocaine -MPF 4% 5 ML AMPUL ONE (13:28)
[2017-06-10] MEDS ORDERED: Lidocaine -MPF 2% 2 ML VIAL ONE (13:28)
[2017-06-10] MEDS ORDERED: *HR* Phenylephrine 10 MG/ML VIAL ONE (13:28)
[2017-06-10] MEDS ORDERED: Ondansetron 4 MG/2 ML VIAL ONE (13:28)
[2017-06-10] MEDS ORDERED: Ampicillin 2 GM in 0.9 % Sodium Chloride 150 ML IVPB ONE (13:39)
[2017-06-10] MEDS ORDERED: CeFAZolin Syr 2,000MG/20 ML 2,000 MG/20 ML SYRINGE IVPB ONE (14:03)
[2017-06-10] MEDS: Ringers Solution, Lactated 1,000 ML IVC SCH ×2 (14:23→14:25)
[2017-06-10] MEDS: *HR* HYDROmorphone (PF) 1 MG/ML SYRINGE IVP PRN ×2 (15:33→15:38)
--- NOTE | 2017-06-10 15:45 | Operative Note ---
Date of procedure: 06/10/17 Pre-op diagnosis: Right hip displaced femoral neck fracture Post-op diagnosis: same Procedure: Right hip hemiarthroplasty Implants: Biomet Echo system Anesthesia: GETA Surgeon: Glenn Montes Estimated blood loss (cc): 200 Tourniquet Time (Minutes): 0 Specimen: Sent pathology Condition: stable Disposition: PACU Procedure in Detail: The patient received IV antibiotics in the holding area. She was brought to the operating room, sign in was performed. The patient underwent general anesthesia on the hospital bed. She was then transferred to the OR table in supine position. The patient was positioned in the left lateral decubitus position, supported by pelvic supports. Bony prominences of the left lower extremity were well padded. The right lower extremity was then prepped and draped in usual sterile fashion. A timeout was performed. The level of the greater trochanter was palpated, a 10-12 cm curvilinear posterior incision was made, followed by Bovie dissection. The hip abductor was sharply split in line with its fibers with a curved Jones scissors, incising the fascia over the gluteus jose also. The Charnley retractors were then positioned, making sure all not to go too deeply, to protect the sciatic nerve. The bursa over the greater trochanter was excised with Bovie electrocautery. The left hip was then internally rotated, putting the short external rotators on stretch. These were taken down from the insertion point with the Bovie cautery, starting from less of a trochanter and going approximately to the femoral neck. The capsule along the posterior femoral neck and head was then T' ed, giving exposure to the fractured femoral head/neck. The head was then removed with a power corkscrew, and cutting the ligamentum teres. The head was measured and a size 54 mm diameter was chosen. The acetabulum was washed out of any bone fragments, and a trial head was placed giving a good fit. Next, the exposed fractured femoral neck was cleaned up with a rongeur, a paper box cutter was then used to remove the lateral bone. The canal finder was then inserted. We then started broaching with a press-fit broaches from the [employer] echo tray. Starting with a press-fit 7, and moving up to a press-fit 8, keeping the appropriate anteversion and up to an 11. The trial stem was well fixed with no toggling. The broach was then removed. The canal was irrigated out and suctioned. The [employer] Echo press-fit stem was then opened, using a lateralized 130 degree neck angle and a size 11 pressfit stem, the implant was tapped in place, making sure to keep the correct anteversion. Once well positioned, we trialed with a 54 mm diameter trial head, and a -6 mm neck length. There was difficulty reducing the implant. When checking the version was off. The stem was removed, and a separate broaching from size 9 with the proper anteversion. I was able to broach up to a size 13. A new press-fit 15 stem was opened and tapped in place with a correct anteversion. The trial head was put on. Hip was relocated. Stability was checked along with leg length. The leg lengths felt equal, the patient had good extension of the right lower extremity, is able to flex the hip, adduct, and internally rotated up to 60 degrees before the hip started subluxing out. The trial components removed. The acetabulum was copiously irrigated with normal saline once again making sure it was well cleaned out. Next the 54 mm unipolar Endo head was opened with a -6 neck length. This assembled and tapped in place. The hip was reduced, and stability was checked once again. We had good stability. The capsule was then closed with 2-0 FiberWire figure of 8 sutures. The leg was placed on Jones stand, and the short external rotators were reattached to the bone using the FiberWire. The tensor fascia along with the gluteus fascia was closed with FiberWire [id number] sutures and a #1 Vicryl running suture proximally. Once again irrigating the wound with pulse lavage. The deep fat layer was closed with 0 Vicryl, subcutaneous tissues with 2-0 Vicryl simple sutures, and finally the skin was closed with erwin. Sterile dressings were applied. A hip abduction wedge was in place between the patient' s legs. He was then rolled over into supine position and transferred back onto the hospital bed where he was extubated and taken to the recovery room in stable condition.
[2017-06-10] MEDS ORDERED: MOM Conc 10 ML UD.LIQ PO PRN (16:05)
[2017-06-10] MEDS ORDERED: Patient Taking Own Medication 1 EACH NS PRN (16:05)
[2017-06-10] MEDS ORDERED: Ondansetron 4 MG/2 ML VIAL IVP PRN ×2 (16:05)
[2017-06-10] MEDS ORDERED: *HR* Morphine 2 MG/ML SYRINGE IVP PRN (16:05)
[2017-06-10] MEDS ORDERED: Sennosides 8.6 MG TABLET PO PRN (16:05)
--- NOTE | 2017-06-10 16:14 | Anesthesia Evaluation Post Op ---
Date of Encounter: 06/10/17 Time of Encounter: 16:13 - Vital Signs Vital Signs: Vital Signs/O2 Sat, Most Current Temp Pulse Resp BP Pulse Ox 97.7 F 116 14 168/92 94 06/10/17 16:08 06/10/17 16:08 06/10/17 16:08 06/10/17 16:08 06/10/17 16:08 - Lungs Lungs: Clear Ascult./Percussion - Airway Airway: Non-obstructed - Cardiovascular Regular Rate - Mental Status Mental Status: Alert & Oriented, Answers Appropriately - Pain Pain Scale: 3 Pain Scale used: Numeric (1 - 10) - Nausea Vomiting Nausea Vomiting: Not Present - Hydration Hydration: NPO, Crook catheter - Discharge PostOp Status: Transfer Patient to floor
--- NOTE | 2017-06-10 16:22 | Electrocardiograph Report ---
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
[2017-06-10] MEDS ORDERED: Ascorbic Acid 500 MG TABLET PO SCH (17:00)
[2017-06-10] MEDS: *HR* Enoxaparin 30 MG/0.3 ML SYRINGE SQ SCH (18:43)
--- NOTE | 2017-06-10 18:57 | Internal Med Progress Note ---
Date of Encounter: 06/10/17 Time of Encounter: 18:55 - Assessment and plan (1) Femoral neck fracture Current Visit: Yes Status: Acute Assessment and plan: Patient had a fall. Following fall he had a femur neck fracture. Patient is hospitalized and will be going for surgery this afternoon. Plan: We will follow the recommendations from orthopedic. Qualifiers: Encounter type: initial encounter Fracture type: closed Laterality: right Qualified Code(s): S72.001A - Fracture of unspecified part of neck of right femur, initial encounter for closed fracture (2) Hypertension Current Visit: No Status: Chronic Assessment and plan: chronic will resume home meds Qualifiers: Hypertension type: essential hypertension Qualified Code(s): I10 - Essential (primary) hypertension (3) GERD (gastroesophageal reflux disease) Current Visit: No Status: Chronic Assessment and plan: chronic resume home meds Qualifiers: Esophagitis presence: esophagitis presence not specified Qualified Code(s) : K21.9 - Gastro-esophageal reflux disease without esophagitis (4) DVT prophylaxis Current Visit: Yes Status: Acute - Subjective Interval history: Patient seen and examined. Chart reviewed. When I examined this patient in the morning patient is scheduled for surgery. Patient denies any chest pain, shortness of breath, nausea, vomiting, abdominal pain, diarrhea or distention. - Constitutional Vitals: Temp Pulse Resp BP Pulse Ox 98.3 F 112 16 134/75 96 06/10/17 18:00 06/10/17 18:00 06/10/17 18:00 06/10/17 18:00 06/10/17 18:00 General appearance: Present: cooperative, mild distress (from hip pain), A&O X 3 , pleasant, answers questions appropriately - Head Head exam: Present: atraumatic, normocephalic - Eye Eye exam: Present: PERRL, conjuntiva pink, sclera anicteric Pupils: Present: PERRL - Neck Neck exam general surgery: Present: supple, trachea midline. Absent: lymphadenopathy - Respiratory Respiratory exam: Present: CTAB. Absent: accessory muscle use, rales, rhonchi, wheezes - Cardiovascular Cardiovascular exam: Present: RRR, +S1, +S2. Absent: diastolic murmur, gallop, rubs, systolic murmur - GI/Abdominal GI/Abdominal exam: Present: normal bowel sounds, soft, no peritoneal signs. Absent: distended, tenderness - Extremities Exam Extremities exam: Present: warm, radial pulses palpable and symmetrical. Absent : calf tenderness, cyanotic, pedal edema - Neurological Exam Neurological exam: Present: CN II-XII intact, oriented X3, no focal deficits. Absent: pronater drift, facial droop, speech deficit - Skin Skin exam: Present: dry, intact Internal Medicine: Result - Labs CBC & Chem 7: 06/09/17 05:17 06/10/17 04:48 Labs: BMP 06/10/17 04:48 Sodium 137 Potassium 4.0 Chloride 107 Carbon Dioxide 24 BUN 12 Creatinine 0.86 Glucose 106 H Calcium 8.7 - ABG Interpretation ABG results: PT/INR, D-dimer PT 13.9 Seconds (9.4-12.1) H 06/09/17 05:17 - Impressions Impressions Hip X-Ray 06/10/17 15:53 IMPRESSION: Interval placement of right hip prosthesis. D/ / Katarzyna Bush Cha, MD / Katarzyna Bush Cha, MD Interpreting Provider: Katarzyna Bush Cha, MD - VTE Documentation of Mechanical Device: Intermittent pneumatic compression device Consult Discharge Plan - Plan Referrals: Alex Yusuf MD [Primary Care Provider] -
[2017-06-10] MEDS: CeFAZolin Premix DUPLEX 2,000 MG/50 ML BAG IVPB SCH (20:03)
[2017-06-10] MEDS: Sucralfate 1 GM TABLET PO SCH (20:03)
[2017-06-10] MEDS: *HR* OxyCODONE Immed Rel 5 MG TABLET PO PRN (23:38)
[2017-06-11] MEDS: CeFAZolin Premix DUPLEX 2,000 MG/50 ML BAG IVPB SCH (04:30)
[2017-06-11] MEDS: *HR* Enoxaparin 30 MG/0.3 ML SYRINGE SQ SCH ×2 (04:32→16:47)
[2017-06-11 07:21] LABS: BUN/Creatinine Ratio 22 (6-26); Blood Urea Nitrogen 19 mg/dL (8-26); Calcium 8.1 mg/dL (8.6-10.8); Carbon Dioxide 19 mEq/L (19-29); Chloride 109 mEq/L (98-109); Glucose 111 mg/dL (70-99); Osmolality,Calculated 285 (280-300); Potassium 4.4 mEq/L (3.5-4.5); Sodium 136 mEq/L (136-145); eGFR For African Americans > 60 (> 60); eGFR For Non-African Americans > 60 (> 60)
[2017-06-11 08:24] LABS: Hematocrit 33.6 % (37.5-50.1)
[2017-06-11 08:25] LABS: Hemoglobin 10.9 g/dL (12.9-16.9)
[2017-06-11] MEDS: Famotidine 20 MG TABLET PO SCH (09:01)
[2017-06-11] MEDS: Fluticasone Propionate Nasal 50 MCG/SPRAY BOTTLE NS SCH (09:02)
[2017-06-11] MEDS: Multivit/Ca/Min/Fe/FA 1 TAB TABLET PO SCH (09:02)
[2017-06-11] MEDS: Sucralfate 1 GM TABLET PO SCH ×2 (09:02→21:06)
[2017-06-11] MEDS: Ascorbic Acid 500 MG TABLET PO SCH (09:02)
[2017-06-11] MEDS: Azelastine 0.1% Nasal Spray 30 ML BOTTLE NS SCH (09:02)
[2017-06-11] MEDS: Cholecalciferol (D-3) 1,000 UNIT TABLET PO SCH (09:02)
[2017-06-11] MEDS: Budesonide/Formoterol 80/4.5 MDI IH SCH ×2 (09:38→20:33)
[2017-06-11] MEDS: diazePAM 2 MG TABLET PO PRN ×2 (14:12→21:06)
[2017-06-11] MEDS: *HR* OxyCODONE Immed Rel 5 MG TABLET PO PRN (14:43)
--- NOTE | 2017-06-11 15:53 | Internal Med Progress Note ---
Date of Encounter: 06/12/17 Time of Encounter: 15:53 - Assessment and plan (1) Femoral neck fracture Current Visit: Yes Status: Acute Assessment and plan: Patient had a fall. Following fall he had a femur neck fracture. Patient is hospitalized and will be going for surgery this afternoon. Plan: We will follow the recommendations from orthopedic. Qualifiers: Encounter type: initial encounter Fracture type: closed Laterality: right Qualified Code(s): S72.001A - Fracture of unspecified part of neck of right femur, initial encounter for closed fracture (2) Hypertension Current Visit: No Status: Chronic Assessment and plan: chronic will resume home meds Qualifiers: Hypertension type: essential hypertension Qualified Code(s): I10 - Essential (primary) hypertension (3) GERD (gastroesophageal reflux disease) Current Visit: No Status: Chronic Assessment and plan: chronic resume home meds Qualifiers: Esophagitis presence: esophagitis presence not specified Qualified Code(s) : K21.9 - Gastro-esophageal reflux disease without esophagitis (4) DVT prophylaxis Current Visit: Yes Status: Acute - Subjective Interval history: Patient seen and examined. Chart reviewed. When I examined this patient in the morning patient is scheduled for surgery. Patient denies any chest pain, shortness of breath, nausea, vomiting, abdominal pain, diarrhea or distention. - Constitutional Vitals: Temp Pulse Resp BP Pulse Ox 98.3 F 64 18 127/68 100 06/11/17 11:38 06/11/17 11:38 06/11/17 11:38 06/11/17 11:38 06/11/17 11:38 General appearance: Present: cooperative, mild distress (from hip pain), A&O X 3 , pleasant, answers questions appropriately Internal Medicine: Result - Labs CBC & Chem 7: 06/12/17 03:31 06/12/17 03:31 Labs: Short CBC 06/11/17 Range/Units 06:44 Hgb 10.9 L D (12.9-16.9) g/dL Hct 33.6 L (37.5-50.1) % BMP 06/11/17 06:44 Sodium 136 Potassium 4.4 Chloride 109 Carbon Dioxide 19 BUN 19 Creatinine 0.88 Glucose 111 H Calcium 8.1 L - ABG Interpretation ABG results: PT/INR, D-dimer PT 13.9 Seconds (9.4-12.1) H 11/30/17 05:17 - Impressions Impressions Hip X-Ray 06/10/17 15:53 IMPRESSION: Interval placement of right hip prosthesis. D/ / Katarzyna Bush Cha, MD / Katarzyna Bush Cha, MD Interpreting Provider: Katarzyna Bush Cha, MD - VTE Documentation of Mechanical Device: Intermittent pneumatic compression device Consult Discharge Plan - Plan Referrals: Alex Yusuf MD [Primary Care Provider] -
--- NOTE | 2017-06-11 17:58 | Orthopedics Progress Note ---
Date of Encounter: 06/11/17 Time of Encounter: 17:57 Subjective Interval history: S: doing well. pain controlled. Up to chair today. No n/t. No f/c/ns O: AFVSS GEN: NAD, AAOx3 RLE: Dress c/d/i +EHL/PF/DF SILT L2-S1 POD#1 s/p R hip becky -PO pain control -WBAT, up with PT -D/c planning Objective Vital signs: Vital Signs Temp Pulse Resp BP Pulse Ox 06/11/17 15:54 99.0 F 98 18 165/66 97 06/11/17 11:38 98.3 F 64 18 127/68 100 06/11/17 11:30 103 95 06/11/17 11:27 98.0 F 100 18 111/52 98 06/11/17 09:39 16 94 06/11/17 07:48 98.5 F 85 18 121/57 97 06/11/17 03:10 98.7 F 94 18 115/70 97 06/10/17 23:52 98.8 F 101 18 108/57 97 06/10/17 20:17 16 97 06/10/17 18:00 98.3 F 112 16 134/75 96 Intake and Output 06/11/17 06/11/17 06/11/17 07:59 15:59 23:59 Intake Total 240 / 240 Output Total 900 / 900 Balance -660 / -660 Intake: IV Fluids 0 / 0 KCl 20 mEq in 0.9% Sodium 0 / 0 Chloride 20 meq In 1,000 ml @ 75 mls/hr IVC .[id number] [facility] Rx#: [id number] Oral 240 / 240 Output: Catheter 900 / 900 Other: Meal Lunch Percent of Meal Consumed 70% Weight 91.7 kg Blood Glucose* 164 Patient Weight 06/11/17 23:59 Weight 91.7 kg - Labs CBC & BMP: 06/11/17 06:44 06/11/17 06:44 Labs: Abnormal lab results WBC 11.3 K/mcL (4.3-11.1) H 06/09/17 05:17 Hgb 10.9 g/dL (12.9-16.9) L D 06/11/17 06:44 Hct 33.6 % (37.5-50.1) L 06/11/17 06:44 PT 13.9 Seconds (9.4-12.1) H 06/09/17 05:17 Glucose 111 mg/dL (70-99) H 06/11/17 06:44 POC Glucose 121 (58-89) H 06/09/17 20:23 Calcium 8.1 mg/dL (8.6-10.8) L 06/11/17 06:44 Albumin 3.2 g/dL (3.5-5.0) L 06/09/17 05:17 Albumin/Globulin Ratio 0.9 (1.1-2.2) L 06/09/17 05:17 - VTE Documentation of Mechanical Device: Intermittent pneumatic compression device Consult Discharge Plan - Plan Referrals: Alex Yusuf MD [Primary Care Provider] -
[2017-06-12 03:55] LABS: Hematocrit 31.7 % (37.5-50.1); Hemoglobin 10.4 g/dL (12.9-16.9)
[2017-06-12 04:13] LABS: BUN/Creatinine Ratio 24 (6-26); Blood Urea Nitrogen 20 mg/dL (8-26); Calcium 8.2 mg/dL (8.6-10.8); Carbon Dioxide 23 mEq/L (19-29); Chloride 109 mEq/L (98-109); Glucose 109 mg/dL (70-99); Osmolality,Calculated 285 (280-300); Potassium 4.2 mEq/L (3.5-4.5); Sodium 136 mEq/L (136-145); eGFR For African Americans > 60 (> 60); eGFR For Non-African Americans > 60 (> 60)
[2017-06-12] MEDS: *HR* Enoxaparin 30 MG/0.3 ML SYRINGE SQ SCH ×2 (06:37→17:37)
[2017-06-12] MEDS: *HR* OxyCODONE Immed Rel 5 MG TABLET PO PRN (06:40)
[2017-06-12] MEDS: Sucralfate 1 GM TABLET PO SCH ×2 (07:54→20:27)
[2017-06-12] MEDS: Multivit/Ca/Min/Fe/FA 1 TAB TABLET PO SCH (07:54)
[2017-06-12] MEDS: Ascorbic Acid 500 MG TABLET PO SCH (07:55)
[2017-06-12] MEDS: Famotidine 20 MG TABLET PO SCH (07:55)
[2017-06-12] MEDS: Cholecalciferol (D-3) 1,000 UNIT TABLET PO SCH (07:55)
[2017-06-12] MEDS: Acetaminophen 325 MG TABLET PO PRN ×2 (07:55→14:02)
[2017-06-12] MEDS: Fluticasone Propionate Nasal 50 MCG/SPRAY BOTTLE NS SCH (07:56)
[2017-06-12] MEDS: Azelastine 0.1% Nasal Spray 30 ML BOTTLE NS SCH (07:56)
--- NOTE | 2017-06-12 10:00 | Orthopedics Progress Note ---
Date of Encounter: 06/12/17 Time of Encounter: 09:59 Subjective Interval history: S: Doing well. pain controlled. No new complaints. No n/t. No f/c/ns O: AFVSS GEN: NAD, AAOx3 RLE: Dress c/d/i +EHL/PF/DF SILT L2-S1 POD#2 s/p R hip becky -PO pain control -WBAT, up with PT -D/c planning Objective Vital signs: Vital Signs Temp Pulse Resp BP Pulse Ox 06/12/17 06:34 98.6 F 94 16 157/68 93 06/12/17 05:51 17 91 06/12/17 03:10 98.3 F 98 16 153/58 97 06/12/17 00:00 98.6 F 97 18 160/60 97 06/11/17 20:35 18 95 06/11/17 20:05 98.8 F 105 18 166/60 97 06/11/17 15:54 99.0 F 98 18 165/66 97 06/11/17 11:38 98.3 F 64 18 127/68 100 06/11/17 11:30 103 95 06/11/17 11:27 98.0 F 100 18 111/52 98 Intake and Output 06/11/17 06/12/17 06/12/17 23:59 07:59 15:59 Intake Total 200 / 200 Output Total 175 / 175 Balance 25 / 25 Intake: Oral 200 / 200 Output: Urine 175 / 175 Other: Meal Dinner Percent of Meal Consumed 100% Weight 92.1 kg Patient Weight 06/12/17 23:59 Weight 92.1 kg - Labs CBC & BMP: 06/12/17 03:31 06/12/17 03:31 Labs: Abnormal lab results WBC 11.3 K/mcL (4.3-11.1) H 06/09/17 05:17 Hgb 10.4 g/dL (12.9-16.9) L 06/12/17 03:31 Hct 31.7 % (37.5-50.1) L 06/12/17 03:31 PT 13.9 Seconds (9.4-12.1) H 06/09/17 05:17 Glucose 109 mg/dL (70-99) H 06/12/17 03:31 POC Glucose 121 (58-89) H 06/09/17 20:23 Calcium 8.2 mg/dL (8.6-10.8) L 06/12/17 03:31 Albumin 3.2 g/dL (3.5-5.0) L 06/09/17 05:17 Albumin/Globulin Ratio 0.9 (1.1-2.2) L 06/09/17 05:17 - VTE Documentation of Mechanical Device: Intermittent pneumatic compression device Consult Discharge Plan - Plan Referrals: Alex Yusuf MD [Primary Care Provider] -
[2017-06-12] MEDS: Budesonide/Formoterol 80/4.5 MDI IH SCH ×2 (10:53→22:43)
[2017-06-12 15:30] LABS: Bilirubin,Urine Negative (Negative); Blood,Urine Negative (Negative); Clarity,Urine Clear (Clear); Color,Urine Dark Yellow (Yellow); Glucose,Urine (UA) Normal (Normal); Ketones,Urine Negative (Negative); Leukocyte Esterase,Urine Negative (Negative); Nitrite,Urine Negative (Negative); Protein,Urine 30 mg/dL (Neg-Trace); Specific Gravity,Urine 1.028 (1.010-1.025); Urobilinogen,Urine Normal (Normal)
[2017-06-12 15:32] LABS: Bacteria,Urine None Seen per hpf (None-Few); Hyaline Casts,Urine None Seen per lpf (None-Few); Squamous Epithelial Cell,Urine Moderate per lpf (None-Few)
--- NOTE | 2017-06-12 17:03 | Internal Med Progress Note ---
Date of Encounter: 06/12/17 Time of Encounter: 17:01 - Assessment and plan (1) Femoral neck fracture Current Visit: Yes Status: Acute Assessment and plan: Patient had a fall. Following fall he had a femur neck fracture. Patient is hospitalized and will be going for surgery this afternoon. Plan: We will follow the recommendations from orthopedic. 06/12/2017 Patient needs placement for physical therapy. We will follow the recommendations from the social psychologist. Likely discharge tomorrow as per the recommendations of orthopedics. DVT prophylaxis as per orthopedics. Qualifiers: Encounter type: initial encounter Fracture type: closed Laterality: right Qualified Code(s): S72.001A - Fracture of unspecified part of neck of right femur, initial encounter for closed fracture (2) Hypertension Current Visit: No Status: Chronic Assessment and plan: chronic will resume home meds Qualifiers: Hypertension type: essential hypertension Qualified Code(s): I10 - Essential (primary) hypertension (3) GERD (gastroesophageal reflux disease) Current Visit: No Status: Chronic Assessment and plan: chronic resume home meds Qualifiers: Esophagitis presence: esophagitis presence not specified Qualified Code(s) : K21.9 - Gastro-esophageal reflux disease without esophagitis (4) DVT prophylaxis Current Visit: Yes Status: Acute - Subjective Interval history: Patient seen and examined. Chart reviewed. When I examined this patient in the morning patient is scheduled for surgery. Patient denies any chest pain, shortness of breath, nausea, vomiting, abdominal pain, diarrhea or distention. 06/12/2017 Patient seen and examined. Chart reviewed. Patient is comfortably lying in bed. Family is a concern regarding dysuria. We will send urine analysis. - Constitutional Vitals: Temp Pulse Resp BP Pulse Ox 98.5 F 89 16 153/68 95 06/12/17 14:29 06/12/17 14:29 06/12/17 14:29 06/12/17 14:29 06/12/17 14:29 General appearance: Present: cooperative, mild distress (from hip pain), A&O X 3 , pleasant, answers questions appropriately - Head Head exam: Present: atraumatic, normocephalic - Eye Eye exam: Present: PERRL, conjuntiva pink, sclera anicteric Pupils: Present: PERRL - Neck Neck exam general surgery: Present: supple, trachea midline. Absent: lymphadenopathy - Respiratory Respiratory exam: Present: CTAB. Absent: accessory muscle use, rales, rhonchi, wheezes - Cardiovascular Cardiovascular exam: Present: RRR, +S1, +S2. Absent: diastolic murmur, gallop, rubs, systolic murmur - GI/Abdominal GI/Abdominal exam: Present: normal bowel sounds, soft, no peritoneal signs. Absent: distended, tenderness - Extremities Exam Extremities exam: Present: warm, radial pulses palpable and symmetrical. Absent : calf tenderness, cyanotic, pedal edema - Neurological Exam Neurological exam: Present: CN II-XII intact, oriented X3, no focal deficits. Absent: pronater drift, facial droop, speech deficit - Skin Skin exam: Present: dry, intact Internal Medicine: Result - Labs CBC & Chem 7: 06/12/17 03:31 06/12/17 03:31 Labs: Short CBC 06/12/17 Range/Units 03:31 Hgb 10.4 L (12.9-16.9) g/dL Hct 31.7 L (37.5-50.1) % BMP 06/12/17 03:31 Sodium 136 Potassium 4.2 Chloride 109 Carbon Dioxide 23 BUN 20 Creatinine 0.84 Glucose 109 H Calcium 8.2 L Urine 06/12/17 Range/Units 15:20 Urine Color Dark Yellow (Yellow) Urine Clarity Clear (Clear) Urine pH 6.0 (5.0-8.0) pH Units Ur Specific [place] 1.028 H (1.010-1.025) Urine Protein 30 H (Neg-Trace) mg/dL Urine Glucose (UA) Normal (Normal) mg/dL - ABG Interpretation ABG results: PT/INR, D-dimer PT 13.9 Seconds (9.4-12.1) H 06/09/17 05:17 - VTE Documentation of Mechanical Device: Intermittent pneumatic compression device Consult Discharge Plan - Plan Referrals: Alex Yusuf MD [Primary Care Provider] -
[2017-06-13] MEDS: *HR* Enoxaparin 30 MG/0.3 ML SYRINGE SQ SCH (05:33)
[2017-06-13] MEDS: Ascorbic Acid 500 MG TABLET PO SCH (08:28)
[2017-06-13] MEDS: Cholecalciferol (D-3) 1,000 UNIT TABLET PO SCH (08:28)
[2017-06-13] MEDS: Famotidine 20 MG TABLET PO SCH (08:28)
[2017-06-13] MEDS: Multivit/Ca/Min/Fe/FA 1 TAB TABLET PO SCH (08:28)
[2017-06-13] MEDS: Sucralfate 1 GM TABLET PO SCH (08:28)
[2017-06-13] MEDS: Fluticasone Propionate Nasal 50 MCG/SPRAY BOTTLE NS SCH (08:29)
[2017-06-13] MEDS: Azelastine 0.1% Nasal Spray 30 ML BOTTLE NS SCH (08:29)
[2017-06-13] MEDS: Budesonide/Formoterol 80/4.5 MDI IH SCH (10:42)
[2017-06-13 11:19] VITALS: BP 117/70
--- NOTE | 2017-06-13 12:06 | Physician Discharge Referral ---
ExtendedCare Referral Info Transfer To: [facility] Provider in Charge after Transfer: PCP Institutional Level of Care: Skilled - Diagnosis (1) Hypertension Priority: Secondary Status: Chronic (2) GERD (gastroesophageal reflux disease) Priority: Secondary Status: Chronic (3) Displaced fracture of right femoral neck Priority: Primary Status: Acute - Transfer Medications Prescriptions: Enoxaparin [Lovenox] 30 mg SQ Q12HCO 24 Days #48 syringe Home Medications: Azelastine 0.1% Nasal [place] [Astelin] 1 spray NS DAILY 01/23/17 [History] Azelastine/Fluticasone [Dymista Nasal [place]] 1 spray NS DAILY PRN 01/23/17 [ History] Calcium Carbonate [Tums] 1,000 mg PO Q4HR PRN 01/23/17 [History] LORazepam [Ativan] 0.5 mg PO BID PRN 01/23/17 [History] Sucralfate [Carafate] 1 gm PO BID 01/23/17 [History] Tramadol HCl [Ultram] 50 mg PO BID PRN 01/23/17 [History] Albuterol Sulfate [Albuterol Inhaler] 2 puff IH Q4-6H PRN 01/24/17 [History] Losartan/HCTZ [Hyzaar 50-12.5 Tablet] 1 tab PO DAILY 01/24/17 [History] Tamsulosin [Flomax] 0.4 mg PO DAILY 01/24/17 [History] Ascorbate Calcium [Vitamin C] 500 mg PO DAILY 06/08/17 [History] Aspirin [Lo-Dose Aspirin EC] 81 mg PO DAILY 06/08/17 [History] Budesonide/Formoterol 80/4.5 [Symbicort 80/4.5] 2 puff IH BID 06/08/17 [History ] Cholecalciferol (D-3) [Vitamin D] 2,000 unit PO DAILY 06/08/17 [History] Famotidine [Pepcid] 40 mg PO DAILY 06/08/17 [History] Ferrous Gluconate 324 mg PO DAILY 06/08/17 [History] Fluticasone Propionate Nasal [Flonase] 1 spray NS DAILY 06/08/17 [History] Montelukast [Singulair] 10 mg PO DAILY 06/08/17 [History] Omeprazole [PriLOSEC] 20 mg PO DAILY 06/08/17 [History] Enoxaparin [Lovenox] 30 mg SQ Q12HCO 24 Days #48 syringe 06/13/17 [Rx] Allergies/Adverse Reactions: 3 Allergy/AdvReac Type Severity Reaction Status Date / Time No Known Allergies Allergy Verified 06/08/17 17:01 - Respiratory Orders Smoking Cessation: Smoking cessation has been advised. For more information, call the [employer] Quit Line at 2-559-SSMO-NOW. - Lab Orders Lab Orders: CBC (3 days after discharge, evaluate H&H) - Ancillary Orders May use pressure relief devices daily prn, May consult with Dentist, Shackler, Copping Machine Operator PRN - Advance Directives Living Will: No Power of Vallez Filter Operator: No Code Status: Full Code - Mobility Orders Ambulate (with physical therapy) - Rehabiliation Orders Rehab Potential: Good Rehab Orders: ROM Exercises, Evaluation for Physical Therapy, Evaluation for Occupational Therapy - Treatments Skin tear care topically daily PRN per policy, Fleet enema rectally every other day PRN cleansing purposes - Diet Orders Regular CERTIFICATION: I certify that the transfer of the above named patient to an Extended Care Facility is necessary for the continuing treatment of the diagnosis listed. The above information is true and accurate reflection of patient's current condition. Confidential - Redisclosure prohibited without a patient's written consent.
--- NOTE | 2017-06-13 12:10 | Discharge Summary ---
Date of Encounter: 06/13/17 Time of Encounter: 11:00 - Discharge Diagnosis (1) Hypertension Priority: Secondary Status: Chronic Qualifiers: Hypertension type: essential hypertension Qualified Code(s): I10 - Essential (primary) hypertension (2) GERD (gastroesophageal reflux disease) Priority: Secondary Status: Chronic Qualifiers: Esophagitis presence: esophagitis presence not specified Qualified Code(s) : K21.9 - Gastro-esophageal reflux disease without esophagitis (3) Displaced fracture of right femoral neck Priority: Primary Status: Acute - Discharge Medications Prescriptions: Enoxaparin [Lovenox] 30 mg SQ Q12HCO 24 Days #48 syringe Polyethylene Glycol 3350 [MiraLAX] 17 gm PO DAILY 24 Days #24 powd.pack Sennosides [Senna] 8.6 mg PO DAILY 24 Days #24 tablet Home Medications: Azelastine 0.1% Nasal [place] [Astelin] 1 spray NS DAILY 01/23/17 [History] Azelastine/Fluticasone [Dymista Nasal [place]] 1 spray NS DAILY PRN 01/23/17 [ History] Calcium Carbonate [Tums] 1,000 mg PO Q4HR PRN 01/23/17 [History] LORazepam [Ativan] 0.5 mg PO BID PRN 01/23/17 [History] Sucralfate [Carafate] 1 gm PO BID 01/23/17 [History] Tramadol HCl [Ultram] 50 mg PO BID PRN 01/23/17 [History] Albuterol Sulfate [Albuterol Inhaler] 2 puff IH Q4-6H PRN 01/24/17 [History] Losartan/HCTZ [Hyzaar 50-12.5 Tablet] 1 tab PO DAILY 01/24/17 [History] Tamsulosin [Flomax] 0.4 mg PO DAILY 01/24/17 [History] Ascorbate Calcium [Vitamin C] 500 mg PO DAILY 06/08/17 [History] Aspirin [Lo-Dose Aspirin EC] 81 mg PO DAILY 06/08/17 [History] Budesonide/Formoterol 80/4.5 [Symbicort 80/4.5] 2 puff IH BID 06/08/17 [History ] Cholecalciferol (D-3) [Vitamin D] 2,000 unit PO DAILY 06/08/17 [History] Famotidine [Pepcid] 40 mg PO DAILY 06/08/17 [History] Ferrous Gluconate 324 mg PO DAILY 06/08/17 [History] Fluticasone Propionate Nasal [Flonase] 1 spray NS DAILY 06/08/17 [History] Montelukast [Singulair] 10 mg PO DAILY 06/08/17 [History] Omeprazole [PriLOSEC] 20 mg PO DAILY 06/08/17 [History] Enoxaparin [Lovenox] 30 mg SQ Q12HCO 24 Days #48 syringe 06/13/17 [Rx] Polyethylene Glycol 3350 [MiraLAX] 17 gm PO DAILY 24 Days #24 powd.pack [Rx] Sennosides [Senna] 8.6 mg PO DAILY 24 Days #24 tablet 06/13/17 [Rx] Allergies/Adverse Reactions: 3 Allergy/AdvReac Type Severity Reaction Status Date / Time No Known Allergies Allergy Verified 06/08/17 17:01 Date of admission: 06/08/17 17:18 Primary care physician: Alex Yusuf MD Consults: 06/08/17 18:29 Consult to Warehouse Clerk [CONS] Routine Reason for SW Consult: Discharge planning 06/10/17 16:05 Consult to Nurse Navigator [CONS] Routine Comment: ortho navigator Consult to Occupational Therapy [CONS] Routine Comment: Evaluate, develop and implement POC Reason for Consult: total hip replacement Consult to Physical Therapy [CONS] Routine Comment: Evaluate, develop and implement POC Reason for Consult: total hip replacement Consult to Warehouse Clerk [CONS] Routine Reason for SW Consult: post op joint replacement RT Post Op Consult [CONS] Routine Discharging clinician: Prasanth Rivera Anticipated date of discharge: 06/13/17 - Patient Status Disposition: Transfer SNF Condition: Good Functional capacity at discharge: uses cane/walker Overall status at discharge: patient is progressing back to baseline - Discharge Instructions Follow Up With: Alex Yusuf MD [Primary Care Provider] - Additional Instructions: Follow up with cardiology 2 weeks post discharge for syncope Follow up with PCP in 3-5 days post hospitalization Follow up with orthopedics 2 weeks post hospitalization Take medications as prescribed. - Diet and Activity Activity: as per physical therapy Diet: advance to your usual diet Interval History: Mr. Jerome 77-year-old male history of GERD, hypertension, osteoporosis, GI bleed one year ago secondary to gastric ulcer was admitted for right hip displaced femoral fracture secondary to a mechanical fall at work. There was concern at the time of admission the patient had syncope prior to the fall as reported by the patient's and office staff. The patient adamantly denied syncopal episode. Patient was admitted to general medical floor and orthopedic surgery was consult that. Patient underwent carotid Doppler demonstrating left distal ICA has moderate 40-59% stenosis. Cardiology was consult to see the patient he was deemed low to moderate risk for orthopedic intervention. Cardiology recommended patient follow-up in the outpatient with [facility] to discuss further monitoring such as Holter or event monitor options. Patient underwent orthopedic intervention on 06/10/2017 with an uncomplicated procedure. He continued to improve throughout the remainder of his stay doing well, pain controlled. Hemoglobin dropped from 14.0-10.4 secondary to hip fracture. He did have constipation likely secondary to opiate pain medications and was started on a bowel regimen. He was seen and evaluated on 06/13/2017 deemed stable for discharge to [facility] for further physical therapy and rehabilitation. He was sent with scripts for anticoagulation-DVT, pain control and bowel regimen. Hospital course: Mr. Velez is a 77 year old male - Time Spent with Patient Total time spent providing and/or coordinating discharge services: - Constitutional Vitals: Temp Pulse Resp BP Pulse Ox 99.3 F 83 18 117/70 93 06/13/17 11:17 12 11:17 06/13/17 11:17 06/13/17 11:17 06/13/17 11:17 General appearance: Present: cooperative, mild distress (from hip pain), A&O X 3 , pleasant, answers questions appropriately Exam: General: Patient alert, awake, oriented 3, interactive, in no acute distress HEENT: Normocephalic, atraumatic, pupils equal reactive to light, nasal cavity patent and open septum median position, oral mucosa moist, uvula midline, neck supple trachea midline no palpable lymphadenopathy, no thyromegaly. Chest: Symmetric bilateral correlating with respiratory effort, effort nonlabored. Cardiac: Regular rate and rhythm, positive S1 and S2. no bruits appreciated bilateral carotids, Radial pulses 2+ bilateral, posterior tibial and dorsal pedal pulses 2+ bilateral. Respiratory: Clear to auscultation all lung howell Abdomen: Soft, nontender, positive bowel sounds, no palpable masses appreciated on examination Extremities: Symmetric bilateral, bilateral lower extremities without erythema or edema patient moving all 4 extremities spontaneously. Right hip incision healing well, mild ecchymosis around the incision site but otherwise no drainage erythema or warmth. Neurologic: No focal deficits appreciated on examination. Face symmetric, muscle strength symmetric bilateral upper and lower extremities. - VTE Documentation of Mechanical Device: Intermittent pneumatic compression device
== END 2017-06-13 15:20 | DRG 470 ==
LOC: EMEROO 13:24 → 3NENU 17:18
PROVIDERS: ADMIT Internal Medicine; ATTEND Family Medicine

== ENCOUNTER 2019-02-17 12:06 | Observation (INO) ==
[2019-02-17 12:29] LABS: Basophils # 0.1 K/mcL (0.0-0.2); Basophils % 1.2 %; Eosinophils # 0.7 K/mcL (0.0-0.6); Eosinophils % 9.9 %; Hematocrit 41.7 % (37.5-50.1); Hemoglobin 13.9 g/dL (12.9-16.9); Immature Granulocytes % 0.4 % (0-4); Lymphocytes # 1.1 K/mcL (0.6-4.6); Lymphocytes % 14.8 %; Mean Corpuscular HGB Conc 33.3 g/dL (31.6-35.5); Mean Corpuscular Hemoglobin 30.4 pg (28.0-33.3); Mean Corpuscular Volume 91.2 fL (83.0-100.0); Mean Platelet Volume 9.4 fL (9.4-12.4); Monocytes # 0.5 K/mcL (0.0-1.3); Monocytes % 6.8 %; Platelet Count 200 K/mcL (140-400); Red Blood Count 4.57 M/mcL (4.19-5.50); Red Cell Distribution Width 13.1 % (11.5-14.5); Segmented Neutrophils % 66.9 %; White Blood Count 7.5 K/mcL (4.3-11.1)
[2019-02-17 12:36] LABS: INR 1.2; Prothrombin Time 13.5 Seconds (9.4-12.1)
[2019-02-17 12:54] LABS: Alanine Aminotransferase 10 Units/L (7-52); Albumin 4.1 g/dL (3.5-5.7); Albumin/Globulin Ratio 1.4 (1.1-2.2); Alkaline Phosphatase 75 Units/L (34-104); Aspartate Amino Transferase 16 Units/L (13-39); BUN/Creatinine Ratio 19 (6-26); Bilirubin,Total 0.7 mg/dL (0.3-1.0); Blood Urea Nitrogen 17 mg/dL (8-23); Calcium 9.7 mg/dL (8.6-10.3); Carbon Dioxide 26 mEq/L (23-29); Chloride 106 mEq/L (98-107); Globulin 2.9 g/dL (2.4-3.5); Glucose 106 mg/dL (70-105); Osmolality,Calculated 286 (280-300); Potassium 3.7 mEq/L (3.5-5.1); Sodium 137 mEq/L (136-145); Troponin I < 0.03 ng/mL (< 0.04); eGFR For African Americans > 60 (> 60); eGFR For Non-African Americans > 60 (> 60)
[2019-02-17 13:02] LABS: Bilirubin,Urine Negative (Negative); Blood,Urine Negative (Negative); Clarity,Urine Clear (Clear); Color,Urine Yellow (Yellow); Glucose,Urine (UA) Normal (Normal); Ketones,Urine Negative (Negative); Leukocyte Esterase,Urine Negative (Negative); Nitrite,Urine Negative (Negative); Protein,Urine Negative (Neg-Trace); Specific Gravity,Urine 1.015 (1.010-1.025); Urobilinogen,Urine Normal (Normal)
[2019-02-17 13:05] LABS: Thyroid Stimulating Hormone 1.544 mcIU/mL (0.340-5.600)
[2019-02-17] MEDS ORDERED: Naloxone 0.4 MG/ML INJ IVP PRN (16:49)
[2019-02-17] MEDS ORDERED: Isovue-370 500 ML BOTTLE IVP ONE (17:00)
[2019-02-17 17:32] LABS: Magnesium 2.1 mg/dL (1.6-2.6); Phosphorous 2.3 mg/dL (2.7-4.5)
[2019-02-18] MEDS ORDERED: *HR* Heparin 5,000 UNIT/ML VIAL SQ SCH (06:00)
[2019-02-18 06:17] LABS: Basophils # 0.1 K/mcL (0.0-0.2); Basophils % 1.2 %; Eosinophils # 1.2 K/mcL (0.0-0.6); Eosinophils % 16.6 %; Hematocrit 38.4 % (37.5-50.1); Hemoglobin 12.4 g/dL (12.9-16.9); Immature Granulocytes % 0.4 % (0-4); Lymphocytes # 1.2 K/mcL (0.6-4.6); Lymphocytes % 16.1 %; Mean Corpuscular HGB Conc 32.3 g/dL (31.6-35.5); Mean Corpuscular Hemoglobin 29.9 pg (28.0-33.3); Mean Corpuscular Volume 92.5 fL (83.0-100.0); Mean Platelet Volume 9.9 fL (9.4-12.4); Monocytes # 0.6 K/mcL (0.0-1.3); Monocytes % 8.7 %; Neutrophils # 4.1 K/mcL (1.6-8.9); Platelet Count 186 K/mcL (140-400); Red Blood Count 4.15 M/mcL (4.19-5.50); White Blood Count 7.3 K/mcL (4.3-11.1)
[2019-02-18 06:24] LABS: INR 1.2; Prothrombin Time 14.1 Seconds (9.4-12.1)
[2019-02-18 06:34] LABS: Alanine Aminotransferase 8 Units/L (7-52); Albumin 3.6 g/dL (3.5-5.7); Albumin/Globulin Ratio 1.5 (1.1-2.2); Alkaline Phosphatase 68 Units/L (34-104); Aspartate Amino Transferase 14 Units/L (13-39); BUN/Creatinine Ratio 19 (6-26); Bilirubin,Total 0.6 mg/dL (0.3-1.0); Blood Urea Nitrogen 15 mg/dL (8-23); Calcium 9.4 mg/dL (8.6-10.3); Carbon Dioxide 27 mEq/L (23-29); Chloride 105 mEq/L (98-107); Globulin 2.4 g/dL (2.4-3.5); Glucose 103 mg/dL (70-105); Magnesium 2.1 mg/dL (1.6-2.6); Osmolality,Calculated 289 (280-300); Phosphorous 2.7 mg/dL (2.7-4.5); Potassium 3.4 mEq/L (3.5-5.1); Sodium 139 mEq/L (136-145); eGFR For African Americans > 60 (> 60); eGFR For Non-African Americans > 60 (> 60)
[2019-02-18] MEDS ORDERED: Sucralfate 1 GM TABLET PO SCH (07:30)
[2019-02-18] MEDS ORDERED: Sennosides 8.6 MG TABLET PO SCH (09:00)
[2019-02-18] MEDS ORDERED: Loratadine 10 MG TABLET PO SCH (09:00)
[2019-02-18] MEDS ORDERED: Aspirin Enteric Coated 81 MG Tablet PO SCH (09:00)
[2019-02-18] MEDS ORDERED: Ascorbic Acid 500 MG TABLET PO SCH (09:00)
[2019-02-18] MEDS ORDERED: Losartan/HCTZ 50-12.5 TABLET PO SCH (09:00)
[2019-02-18] MEDS ORDERED: Fluticasone Propionate Nasal 50 MCG/SPRAY BOTTLE NS SCH (09:00)
[2019-02-18 12:01] VITALS: BP 144/74
== END 2019-02-18 15:32 | disposition home or self-care (01) ==
LOC: EMEROOARM 12:06 → 3BNU 12:06 → SUATTDRO 16:19 → 3BNU 17:45
PROVIDERS: ADMIT Internal Medicine; ATTEND Internal Medicine

== ENCOUNTER 2019-06-30 17:49 | Inpatient (IN) ==
[2019-06-30] MEDS ORDERED: *HR* FentaNYL (PF) 100 MCG/2 ML VIAL IVP ONE ×2 (18:46→20:41)
[2019-06-30 18:59] LABS: Basophils # 0.1 K/mcL (0.0-0.2); Basophils % 0.7 %; Eosinophils # 0.3 K/mcL (0.0-0.6); Eosinophils % 1.9 %; Hematocrit 36.9 % (37.5-50.1); Hemoglobin 12.1 g/dL (12.9-16.9); Immature Granulocytes % 0.5 % (0-4); Lymphocytes # 0.8 K/mcL (0.6-4.6); Lymphocytes % 5.7 %; Mean Corpuscular HGB Conc 32.8 g/dL (31.6-35.5); Mean Corpuscular Hemoglobin 30.3 pg (28.0-33.3); Mean Corpuscular Volume 92.3 fL (83.0-100.0); Mean Platelet Volume 9.8 fL (9.4-12.4); Monocytes # 0.8 K/mcL (0.0-1.3); Monocytes % 5.7 %; Neutrophils # 11.4 K/mcL (1.6-8.9); Platelet Count 212 K/mcL (140-400); Red Cell Distribution Width 13.3 % (11.5-14.5); Segmented Neutrophils % 85.5 %; White Blood Count 13.4 K/mcL (4.3-11.1)
[2019-06-30 19:22] LABS: Alanine Aminotransferase 12 Units/L (7-52); Albumin 3.6 g/dL (3.5-5.7); Albumin/Globulin Ratio 1.6 (1.1-2.2); Alkaline Phosphatase 68 Units/L (34-104); Aspartate Amino Transferase 15 Units/L (13-39); BUN/Creatinine Ratio 18 (6-26); Bilirubin,Total 0.4 mg/dL (0.3-1.0); Blood Urea Nitrogen 18 mg/dL (8-23); Calcium 9.4 mg/dL (8.6-10.3); Carbon Dioxide 27 mEq/L (23-29); Chloride 106 mEq/L (98-107); Globulin 2.2 g/dL (2.4-3.5); Glucose 118 mg/dL (70-105); Osmolality,Calculated 293 (280-300); Potassium 3.8 mEq/L (3.5-5.1); Sodium 140 mEq/L (136-145); Total Protein 5.8 g/dL (6.4-8.9); eGFR For African Americans > 60 (> 60); eGFR For Non-African Americans > 60 (> 60)
[2019-06-30] MEDS ORDERED: 0.9 % Sodium Chloride 1,000 ML IVC SCH (23:45)
[2019-06-30] MEDS ORDERED: Naloxone 0.4 MG/ML INJ IVP PRN (23:57)
[2019-07-01] MEDS ORDERED: Fluticasone Propionate Nasal 50 MCG/SPRAY BOTTLE NS PRN (00:07)
[2019-07-01] MEDS ORDERED: Ondansetron 4 MG/2 ML VIAL IVP PRN (00:59)
[2019-07-01] MEDS ORDERED: Acetaminophen 325 MG TABLET PO PRN (01:00)
[2019-07-01] MEDS: *HR* OxyCODONE Immed Rel 5 MG TABLET PO PRN ×3 (01:29→13:57)
[2019-07-01] MEDS ORDERED: tiZANidine 4 MG TABLET PO ONE (02:45)
[2019-07-01] MEDS ORDERED: Perflutren Lipid Microsphere 1.3 ML in 0.9 % Sodium Chloride 8.7 ML IVP ONE (07:38)
[2019-07-01] MEDS: Loratadine 10 MG TABLET PO SCH (07:42)
[2019-07-01 14:39] LABS: Hematocrit 31.8 % (37.5-50.1); Hemoglobin 10.3 g/dL (12.9-16.9); Mean Corpuscular HGB Conc 32.4 g/dL (31.6-35.5); Mean Corpuscular Hemoglobin 29.9 pg (28.0-33.3); Mean Corpuscular Volume 92.4 fL (83.0-100.0); Mean Platelet Volume 9.9 fL (9.4-12.4); Platelet Count 176 K/mcL (140-400); Red Blood Count 3.44 M/mcL (4.19-5.50); Red Cell Distribution Width 13.5 % (11.5-14.5)
[2019-07-01 14:50] LABS: INR 1.2; Prothrombin Time 13.9 Seconds (9.4-12.1)
[2019-07-01 14:52] LABS: Activated Partial Thrombo Time 33.3 Seconds (26.0-36.0)
[2019-07-01 14:58] LABS: % Iron Saturation 10 % (20-55); BUN/Creatinine Ratio 21 (6-26); Blood Urea Nitrogen 26 mg/dL (8-23); Calcium 8.7 mg/dL (8.6-10.3); Carbon Dioxide 27 mEq/L (23-29); Chloride 108 mEq/L (98-107); Chol/HDL Ratio 2.5 (0-4.9); Cholesterol 109 mg/dL (< 200); Glucose 108 mg/dL (70-105); HDL Cholesterol 43 mg/dL (40-59); Iron 23 mcg/dL (65-175); LDL Cholesterol,Calculated 46 mg/dL (0-99); Magnesium 1.9 mg/dL (1.6-2.6); Osmolality,Calculated 295 (280-300); Phosphorous 3.6 mg/dL (2.7-4.5); Potassium 3.8 mEq/L (3.5-5.1); Sodium 140 mEq/L (136-145); Transferrin 165 mg/dL (203-362); Triglycerides 101 mg/dL (< 150); eGFR For African Americans > 60 (> 60); eGFR For Non-African Americans 56 (> 60)
[2019-07-02 03:59] LABS: Bilirubin,Urine Negative (Negative); Blood,Urine Negative (Negative); Clarity,Urine Clear (Clear); Color,Urine Yellow (Yellow); Glucose,Urine (UA) Normal (Normal); Ketones,Urine Negative (Negative); Leukocyte Esterase,Urine Negative (Negative); Nitrite,Urine Negative (Negative); PH,Urine 5.5 pH Units (5.0-8.0); Protein,Urine 30 mg/dL (Neg-Trace); Specific Gravity,Urine 1.028 (1.010-1.025); Urobilinogen,Urine Normal (Normal)
[2019-07-02 04:00] LABS: Bacteria,Urine None Seen per hpf (None-Few); Hyaline Casts,Urine None Seen per lpf (None-Few)
[2019-07-02 04:17] LABS: WBC,Urine 0-3 per hpf (0-3)
[2019-07-02] MEDS ORDERED: 0.9 % Sodium Chloride 1,000 ML IVC ONE (04:55)
[2019-07-02 05:24] LABS: Hematocrit 28.6 % (37.5-50.1); Hemoglobin 9.2 g/dL (12.9-16.9); Mean Corpuscular HGB Conc 32.2 g/dL (31.6-35.5); Mean Corpuscular Hemoglobin 30.3 pg (28.0-33.3); Mean Corpuscular Volume 94.1 fL (83.0-100.0); Platelet Count 156 K/mcL (140-400); Red Blood Count 3.04 M/mcL (4.19-5.50); Red Cell Distribution Width 13.7 % (11.5-14.5); White Blood Count 11.2 K/mcL (4.3-11.1)
[2019-07-02 05:42] LABS: BUN/Creatinine Ratio 24 (6-26); Blood Urea Nitrogen 25 mg/dL (8-23); Calcium 8.4 mg/dL (8.6-10.3); Carbon Dioxide 26 mEq/L (23-29); Chloride 109 mEq/L (98-107); Glucose 111 mg/dL (70-105); Osmolality,Calculated 293 (280-300); Potassium 3.9 mEq/L (3.5-5.1); Sodium 139 mEq/L (136-145); eGFR For African Americans > 60 (> 60); eGFR For Non-African Americans > 60 (> 60)
[2019-07-02] MEDS: Loratadine 10 MG TABLET PO SCH (08:54)
[2019-07-02] MEDS: *HR* OxyCODONE Immed Rel 5 MG TABLET PO PRN (09:03)
[2019-07-02] MEDS ORDERED: Ethanol\\Acetic Acid\\Na Ace\\Ben 1,000 ML IRRIG.SOLN IR ONE (17:36)
[2019-07-02] MEDS ORDERED: *HR* Propofol 200 MG/20 ML VIAL IVP ONE (17:51)
[2019-07-02] MEDS ORDERED: *HR* FentaNYL (PF) 100 MCG/2 ML VIAL ONE ×2 (17:51→18:46)
[2019-07-02] MEDS ORDERED: Ondansetron 4 MG/2 ML VIAL ONE (17:51)
[2019-07-02] MEDS ORDERED: Lidocaine -MPF 2% 2 ML VIAL ONE (17:51)
[2019-07-02] MEDS ORDERED: Dexamethasone 4 MG/ML VIAL ONE (17:51)
[2019-07-02] MEDS ORDERED: *HR* Succinylcholine 200 MG/10 ML VIAL IVP ONE (17:52)
[2019-07-02] MEDS ORDERED: Acetaminophen IV 1,000 MG/100 ML INFUS..BTL ONE (18:01)
[2019-07-02] MEDS ORDERED: EPHEDrine 50 MG/ML VIAL ONE (18:24)
[2019-07-02] MEDS ORDERED: *HR* PHENYLEPHRINE 1,000 MCG/10 ML SYRINGE IVP ONE (18:27)
[2019-07-02] MEDS ORDERED: Ondansetron 4 MG/2 ML VIAL IVP ONE (19:17)
[2019-07-02] MEDS ORDERED: Morphine Sulfate 2 MG/ML SYRINGE IVP PRN (19:17)
[2019-07-02 20:41] LABS: Hematocrit 24.2 % (37.5-50.1)
[2019-07-02] MEDS ORDERED: Naloxone 0.4 MG/ML INJ IVP PRN (20:53)
[2019-07-02] MEDS ORDERED: HYDROcodone BIT/Homatropine 5 MG TABLET PO PRN (20:53)
[2019-07-02] MEDS ORDERED: Ondansetron 4 MG/2 ML VIAL IVP PRN (20:53)
[2019-07-02] MEDS ORDERED: Acetaminophen 325 MG TABLET PO PRN (20:53)
[2019-07-02] MEDS ORDERED: MOM Conc 10 ML UD.LIQ PO PRN (20:53)
[2019-07-02] MEDS ORDERED: *HR* Promethazine 25 MG/ML VIAL IVP PRN (20:53)
[2019-07-02] MEDS ORDERED: Fluticasone Propionate Nasal 50 MCG/SPRAY BOTTLE NS PRN (20:53)
[2019-07-02] MEDS ORDERED: Sennosides 8.6 MG TABLET PO PRN (21:00)
[2019-07-02] MEDS ORDERED: Temazepam 15 MG CAPSULE PO PRN (21:00)
[2019-07-02] MEDS: Ascorbic Acid 500 MG TABLET PO SCH (21:14)
[2019-07-03] MEDS: Ringers Solution, Lactated 1,000 ML IVC SCH ×3 (03:16→22:51)
[2019-07-03] MEDS: *HR* OxyCODONE Immed Rel 5 MG TABLET PO PRN ×3 (06:55→22:51)
[2019-07-03] MEDS ORDERED: Furosemide 20 MG/2 ML VIAL IVP PRN (07:08)
[2019-07-03] MEDS: Loratadine 10 MG TABLET PO SCH (07:57)
[2019-07-03] MEDS: Ascorbic Acid 500 MG TABLET PO SCH ×2 (07:58→16:16)
[2019-07-03] MEDS: Multivit/Ca/Min/Fe/FA 1 TAB TABLET PO SCH (07:58)
[2019-07-03 08:01] LABS: Basophils % 0.2 %; Eosinophils % 0.1 %; Hemoglobin 7.7 g/dL (12.9-16.9); Immature Granulocytes % 0.6 % (0-4); Lymphocytes # 0.7 K/mcL (0.6-4.6); Lymphocytes % 5.8 %; Mean Corpuscular HGB Conc 32.1 g/dL (31.6-35.5); Mean Corpuscular Hemoglobin 30.6 pg (28.0-33.3); Mean Corpuscular Volume 95.2 fL (83.0-100.0); Monocytes # 1.1 K/mcL (0.0-1.3); Monocytes % 9.2 %; Neutrophils # 10.4 K/mcL (1.6-8.9); Platelet Count 170 K/mcL (140-400); Red Blood Count 2.52 M/mcL (4.19-5.50); Red Cell Distribution Width 13.2 % (11.5-14.5); Segmented Neutrophils % 84.1 %; White Blood Count 12.3 K/mcL (4.3-11.1)
[2019-07-03] MEDS ORDERED: 0.9 % Sodium Chloride 250 ML ONE ×2 (10:45→16:06)
[2019-07-03] MEDS: Aspirin Enteric Coated 81 MG Tablet PO SCH (16:20)
[2019-07-03 20:01] LABS: Hematocrit 27.7 % (37.5-50.1)
[2019-07-03 20:02] LABS: Hemoglobin 9.3 g/dL (12.9-16.9)
[2019-07-04] MEDS: Multivit/Ca/Min/Fe/FA 1 TAB TABLET PO SCH (07:35)
[2019-07-04] MEDS: Aspirin Enteric Coated 81 MG Tablet PO SCH (07:35)
[2019-07-04] MEDS: Ascorbic Acid 500 MG TABLET PO SCH ×2 (07:35→17:31)
[2019-07-04] MEDS: Loratadine 10 MG TABLET PO SCH (07:36)
[2019-07-04 11:18] LABS: Hematocrit 28.3 % (37.5-50.1); Hemoglobin 9.3 g/dL (12.9-16.9); Mean Corpuscular HGB Conc 32.9 g/dL (31.6-35.5); Mean Corpuscular Hemoglobin 29.9 pg (28.0-33.3); Mean Platelet Volume 10.2 fL (9.4-12.4); Platelet Count 216 K/mcL (140-400); Red Blood Count 3.11 M/mcL (4.19-5.50); Red Cell Distribution Width 13.9 % (11.5-14.5); White Blood Count 13.1 K/mcL (4.3-11.1)
[2019-07-04 11:30] LABS: BUN/Creatinine Ratio 38 (6-26); Blood Urea Nitrogen 43 mg/dL (8-23); Calcium 8.8 mg/dL (8.6-10.3); Carbon Dioxide 24 mEq/L (23-29); Chloride 107 mEq/L (98-107); Glucose 112 mg/dL (70-105); Osmolality,Calculated 294 (280-300); Sodium 136 mEq/L (136-145); eGFR For African Americans > 60 (> 60); eGFR For Non-African Americans > 60 (> 60)
[2019-07-05 03:45] LABS: BUN/Creatinine Ratio 46 (6-26); Blood Urea Nitrogen 47 mg/dL (8-23); Calcium 8.3 mg/dL (8.6-10.3); Carbon Dioxide 24 mEq/L (23-29); Chloride 107 mEq/L (98-107); Glucose 106 mg/dL (70-105); Osmolality,Calculated 295 (280-300); Potassium 3.9 mEq/L (3.5-5.1); Sodium 136 mEq/L (136-145); eGFR For African Americans > 60 (> 60); eGFR For Non-African Americans > 60 (> 60)
[2019-07-05 03:49] LABS: Hematocrit 22.9 % (37.5-50.1); Mean Corpuscular HGB Conc 33.2 g/dL (31.6-35.5); Mean Corpuscular Hemoglobin 30.3 pg (28.0-33.3); Mean Corpuscular Volume 91.2 fL (83.0-100.0); Mean Platelet Volume 10.4 fL (9.4-12.4); Platelet Count 191 K/mcL (140-400); Red Blood Count 2.51 M/mcL (4.19-5.50); Red Cell Distribution Width 13.6 % (11.5-14.5); White Blood Count 10.6 K/mcL (4.3-11.1)
[2019-07-05 04:10] LABS: Hemoglobin 7.6 g/dL (12.9-16.9)
[2019-07-05] MEDS ORDERED: 0.9 % Sodium Chloride 250 ML ONE (07:54)
[2019-07-05] MEDS: Aspirin Enteric Coated 81 MG Tablet PO SCH (08:20)
[2019-07-05] MEDS: Loratadine 10 MG TABLET PO SCH (08:20)
[2019-07-05] MEDS: Ascorbic Acid 500 MG TABLET PO SCH ×2 (08:21→16:43)
[2019-07-05] MEDS: Multivit/Ca/Min/Fe/FA 1 TAB TABLET PO SCH (08:21)
[2019-07-05 13:11] LABS: Hematocrit 30.4 % (37.5-50.1)
[2019-07-05 13:22] LABS: Hemoglobin 9.9 g/dL (12.9-16.9)
[2019-07-05 17:22] VITALS: BP 143/61
== END 2019-07-05 18:40 | DRG 467 ==
LOC: 3NENU 17:49 → EMEROOARM 17:49 → 3NENU 23:00 → SUATTDRO 23:57
PROVIDERS: ADMIT Internal Medicine; ATTEND Internal Medicine

== ENCOUNTER 2020-07-16 03:35 | Inpatient (IN) ==
[2020-07-16 04:11] LABS: Basophils # 0.1 K/mcL (0.0-0.2); Basophils % 0.6 %; Eosinophils # 0.1 K/mcL (0.0-0.6); Eosinophils % 0.3 %; Hematocrit 33.2 % (37.5-50.1); Hemoglobin 10.1 g/dL (12.9-16.9); Immature Granulocytes % 0.6 % (0-4); Lymphocytes % 6.4 %; Mean Corpuscular HGB Conc 30.4 g/dL (31.6-35.5); Mean Corpuscular Hemoglobin 26.8 pg (28.0-33.3); Mean Corpuscular Volume 88.1 fL (83.0-100.0); Mean Platelet Volume 9.3 fL (9.4-12.4); Monocytes # 0.9 K/mcL (0.0-1.3); Monocytes % 5.7 %; Neutrophils # 13.7 K/mcL (1.6-8.9); Platelet Count 374 K/mcL (140-400); Red Blood Count 3.77 M/mcL (4.19-5.50); Red Cell Distribution Width 15.7 % (11.5-14.5); Segmented Neutrophils % 86.4 %; White Blood Count 15.8 K/mcL (4.3-11.1)
[2020-07-16 04:30] LABS: BUN/Creatinine Ratio 24 (6-26); Blood Urea Nitrogen 17 mg/dL (8-23); Carbon Dioxide 24 mEq/L (23-29); Chloride 104 mEq/L (98-107); Creatine Kinase 66 Units/L (30-223); Glucose 123 mg/dL (70-105); Osmolality,Calculated 283 (280-300); Potassium 4.2 mEq/L (3.5-5.1); Sodium 135 mEq/L (136-145); eGFR For African Americans > 60 (> 60); eGFR For Non-African Americans > 60 (> 60)
[2020-07-16 04:38] LABS: Troponin I < 0.03 ng/mL (< 0.04)
[2020-07-16 05:22] LABS: Bilirubin,Urine Negative (Negative); Blood,Urine Negative (Negative); Clarity,Urine Clear (Clear); Color,Urine Light-Yellow (Yellow); Glucose,Urine (UA) Normal (Normal); Ketones,Urine Negative (Negative); Leukocyte Esterase,Urine Negative (Negative); Nitrite,Urine Negative (Negative); PH,Urine 5.5 pH Units (5.0-8.0); Protein,Urine Negative (Neg-Trace); Specific Gravity,Urine 1.023 (1.010-1.025); Urobilinogen,Urine Normal (Normal)
[2020-07-16] MEDS ORDERED: Piperacillin/Tazobactam 3.375 GM in 0.9 % Sodium Chloride Mini Bag 100 ML IVPB ONE (05:56)
[2020-07-16] MEDS ORDERED: Vancomycin 1,500 MG/265 ML IV.SOLN IVPB ONE (05:56)
[2020-07-16] MEDS ORDERED: Naloxone 0.4 MG/ML INJ IVP PRN (07:34)
[2020-07-16] MEDS: Ondansetron 4 MG/2 ML VIAL IVP PRN (08:12)
[2020-07-16] MEDS ORDERED: Lactulose Oral Soln 20 GM/30 ML UDC PO PRN (13:27)
[2020-07-16] MEDS ORDERED: Ipratropium/Albuterol Neb 3 ML IH PRN (13:27)
[2020-07-16] MEDS ORDERED: Atropine 1% Opth Drops 100 DROP/5 ML BOTTLE SL PRN (13:27)
[2020-07-16] MEDS ORDERED: GuaiFENesin Liq 200 MG/10 ML UDC PO PRN (13:27)
[2020-07-16] MEDS ORDERED: Td (TENIVAC) Vaccine 0.5 ML VIAL IM ONE (14:09)
[2020-07-16] MEDS: Piperacillin/Tazobactam 3.375 GM in 0.9 % Sodium Chloride Mini Bag 100 ML IVP SCH ×2 (14:24→21:52)
[2020-07-16] MEDS: *HR* Heparin 5,000 UNIT/ML VIAL SQ SCH (17:48)
[2020-07-16] MEDS: Budesonide/Formoterol 80/4.5 1 PUFF INH IH SCH (20:13)
[2020-07-16] MEDS: *HR* LORazepam 0.5 MG TABLET PO SCH (21:09)
[2020-07-16] MEDS: Nystatin POWDER 30 GM BOTTLE TP SCH (21:10)
[2020-07-17 01:30] LABS: Hematocrit 27.4 % (37.5-50.1); Hemoglobin 8.6 g/dL (12.9-16.9); Mean Corpuscular HGB Conc 31.4 g/dL (31.6-35.5); Mean Corpuscular Hemoglobin 27.3 pg (28.0-33.3); Mean Platelet Volume 9.2 fL (9.4-12.4); Platelet Count 297 K/mcL (140-400); Red Blood Count 3.15 M/mcL (4.19-5.50); Red Cell Distribution Width 15.9 % (11.5-14.5); White Blood Count 9.2 K/mcL (4.3-11.1)
[2020-07-17 01:50] LABS: BUN/Creatinine Ratio 24 (6-26); Blood Urea Nitrogen 19 mg/dL (8-23); Calcium 8.5 mg/dL (8.6-10.3); Carbon Dioxide 23 mEq/L (23-29); Chloride 104 mEq/L (98-107); Glucose 115 mg/dL (70-105); Magnesium 1.9 mg/dL (1.6-2.6); Osmolality,Calculated 279 (280-300); Potassium 4.2 mEq/L (3.5-5.1); Sodium 133 mEq/L (136-145); eGFR For African Americans > 60 (> 60); eGFR For Non-African Americans > 60 (> 60)
[2020-07-17] MEDS: Piperacillin/Tazobactam 3.375 GM in 0.9 % Sodium Chloride Mini Bag 100 ML IVP SCH ×3 (06:32→22:08)
[2020-07-17] MEDS: Vancomycin 1,250 MG/262.5 ML IV.SOLN IVPB SCH (06:32)
[2020-07-17] MEDS: *HR* Heparin 5,000 UNIT/ML VIAL SQ SCH ×2 (06:32→17:01)
[2020-07-17] MEDS ORDERED: Metoprolol XL (24 HR) Succ 25 MG TAB.ER.24H PO SCH (09:00)
[2020-07-17] MEDS: Budesonide/Formoterol 80/4.5 1 PUFF INH IH SCH ×2 (09:11→19:53)
[2020-07-17] MEDS: Aspirin Enteric Coated 81 MG Tablet PO SCH (10:10)
[2020-07-17] MEDS: *HR* LORazepam 0.5 MG TABLET PO SCH ×2 (10:10→21:17)
[2020-07-17] MEDS: Nystatin POWDER 30 GM BOTTLE TP SCH ×2 (10:11→21:17)
[2020-07-17 12:01] LABS: Hematocrit 26.5 % (37.5-50.1); Hemoglobin 8.2 g/dL (12.9-16.9)
[2020-07-18 01:42] LABS: Basophils # 0.1 K/mcL (0.0-0.2); Basophils % 1.3 %; Eosinophils # 0.4 K/mcL (0.0-0.6); Eosinophils % 4.4 %; Hemoglobin 8.3 g/dL (12.9-16.9); Immature Granulocytes % 0.5 % (0-4); Lymphocytes # 1.2 K/mcL (0.6-4.6); Lymphocytes % 14.3 %; Mean Corpuscular HGB Conc 30.7 g/dL (31.6-35.5); Mean Corpuscular Hemoglobin 26.7 pg (28.0-33.3); Mean Corpuscular Volume 86.8 fL (83.0-100.0); Mean Platelet Volume 9.4 fL (9.4-12.4); Monocytes # 0.8 K/mcL (0.0-1.3); Monocytes % 9.6 %; Neutrophils # 6.1 K/mcL (1.6-8.9); Platelet Count 278 K/mcL (140-400); Red Blood Count 3.11 M/mcL (4.19-5.50); Segmented Neutrophils % 69.9 %; White Blood Count 8.7 K/mcL (4.3-11.1)
[2020-07-18 02:03] LABS: Alanine Aminotransferase 7 Units/L (7-52); Albumin/Globulin Ratio 1.1 (1.1-2.2); Alkaline Phosphatase 64 Units/L (34-104); Aspartate Amino Transferase 9 Units/L (13-39); BUN/Creatinine Ratio 23 (6-26); Bilirubin,Total 0.4 mg/dL (0.3-1.0); Blood Urea Nitrogen 18 mg/dL (8-23); Calcium 8.6 mg/dL (8.6-10.3); Carbon Dioxide 24 mEq/L (23-29); Chloride 107 mEq/L (98-107); Globulin 2.7 g/dL (2.4-3.5); Glucose 113 mg/dL (70-105); Osmolality,Calculated 287 (280-300); Phosphorous 3.4 mg/dL (2.7-4.5); Potassium 4.3 mEq/L (3.5-5.1); Sodium 137 mEq/L (136-145); Total Protein 5.7 g/dL (6.4-8.9); eGFR For African Americans > 60 (> 60); eGFR For Non-African Americans > 60 (> 60)
[2020-07-18] MEDS: Piperacillin/Tazobactam 3.375 GM in 0.9 % Sodium Chloride Mini Bag 100 ML IVP SCH (06:20)
[2020-07-18] MEDS: *HR* Heparin 5,000 UNIT/ML VIAL SQ SCH ×2 (06:20→19:26)
[2020-07-18] MEDS ORDERED: Vancomycin 1,500 MG/265 ML IV.SOLN IVPB SCH (08:00)
[2020-07-18] MEDS: *HR* LORazepam 0.5 MG TABLET PO SCH ×2 (08:52→20:32)
[2020-07-18] MEDS: Metoprolol XL (24 HR) Succ 25 MG TAB.ER.24H PO SCH (08:54)
[2020-07-18] MEDS: Aspirin Enteric Coated 81 MG Tablet PO SCH (08:55)
[2020-07-18] MEDS: Vancomycin 1,250 MG/262.5 ML IV.SOLN IVPB SCH (08:57)
[2020-07-18] MEDS: Budesonide/Formoterol 80/4.5 1 PUFF INH IH SCH ×2 (09:57→20:16)
[2020-07-18] MEDS: Nystatin POWDER 30 GM BOTTLE TP SCH ×2 (19:28→20:34)
[2020-07-19 01:39] LABS: Basophils # 0.1 K/mcL (0.0-0.2); Basophils % 1.4 %; Eosinophils # 1.1 K/mcL (0.0-0.6); Eosinophils % 13.2 %; Hematocrit 27.9 % (37.5-50.1); Hemoglobin 8.4 g/dL (12.9-16.9); Immature Granulocytes % 0.5 % (0-4); Lymphocytes # 1.3 K/mcL (0.6-4.6); Lymphocytes % 16.5 %; Mean Corpuscular HGB Conc 30.1 g/dL (31.6-35.5); Mean Corpuscular Hemoglobin 26.5 pg (28.0-33.3); Monocytes # 0.7 K/mcL (0.0-1.3); Monocytes % 8.7 %; Neutrophils # 4.8 K/mcL (1.6-8.9); Platelet Count 300 K/mcL (140-400); Red Blood Count 3.17 M/mcL (4.19-5.50); Red Cell Distribution Width 15.9 % (11.5-14.5); Segmented Neutrophils % 59.7 %; White Blood Count 8.1 K/mcL (4.3-11.1)
[2020-07-19 01:56] LABS: Alanine Aminotransferase 8 Units/L (7-52); Albumin 3.1 g/dL (3.5-5.7); Albumin/Globulin Ratio 1.1 (1.1-2.2); Alkaline Phosphatase 81 Units/L (34-104); Aspartate Amino Transferase 12 Units/L (13-39); BUN/Creatinine Ratio 24 (6-26); Bilirubin,Total 0.4 mg/dL (0.3-1.0); Blood Urea Nitrogen 21 mg/dL (8-23); Calcium 8.9 mg/dL (8.6-10.3); Carbon Dioxide 24 mEq/L (23-29); Chloride 105 mEq/L (98-107); Globulin 2.8 g/dL (2.4-3.5); Glucose 93 mg/dL (70-105); Magnesium 2.1 mg/dL (1.6-2.6); Osmolality,Calculated 283 (280-300); Phosphorous 3.7 mg/dL (2.7-4.5); Potassium 4.4 mEq/L (3.5-5.1); Sodium 135 mEq/L (136-145); Total Protein 5.9 g/dL (6.4-8.9); eGFR For African Americans > 60 (> 60); eGFR For Non-African Americans > 60 (> 60)
[2020-07-19 02:21] LABS: Folate 6.6 ng/mL (3.0-16.0)
[2020-07-19 02:23] LABS: Ferritin 19 ng/mL (20-250); Iron < 10 mcg/dL (65-175); Transferrin 204 mg/dL (203-362)
[2020-07-19] MEDS: Budesonide/Formoterol 80/4.5 1 PUFF INH IH SCH ×2 (08:16→19:50)
[2020-07-19] MEDS ORDERED: Iron Sucrose Complex 400 MG in 0.9 % Sodium Chloride 250 ML IVPB ONE (08:35)
[2020-07-19] MEDS ORDERED: Isovue-370 500 ML BOTTLE IVP ONE (08:36)
[2020-07-19] MEDS ORDERED: Pantoprazole 40 MG VIAL IVP SCH (09:00)
[2020-07-19] MEDS: Nystatin POWDER 30 GM BOTTLE TP SCH ×2 (10:15→20:39)
[2020-07-19] MEDS: Multivit/Ca/Min/Fe/FA 1 TAB TABLET PO SCH (10:17)
[2020-07-19] MEDS: *HR* LORazepam 0.5 MG TABLET PO SCH ×2 (10:17→20:39)
[2020-07-19] MEDS: Aspirin Enteric Coated 81 MG Tablet PO SCH (10:17)
[2020-07-19] MEDS: Metoprolol XL (24 HR) Succ 25 MG TAB.ER.24H PO SCH (10:18)
[2020-07-19 12:17] LABS: Hematocrit 26.1 % (37.5-50.1); Hemoglobin 7.8 g/dL (12.9-16.9)
[2020-07-19] MEDS ORDERED: 0.9 % Sodium Chloride 250 ML ONE (15:54)
[2020-07-19] MEDS: Ondansetron 4 MG/2 ML VIAL IVP PRN (17:02)
[2020-07-19] MEDS: polyethylene glycoL 3350 17 GM POWD.PACK PO SCH (20:39)
[2020-07-19] MEDS: Pantoprazole 40 MG VIAL IVP SCH (20:39)
[2020-07-19] MEDS: Sennosides/Docusate Sodium TABLET PO SCH (20:39)
[2020-07-19] MEDS: QUEtiapine Fumarate 25 MG TABLET PO SCH (20:39)
[2020-07-19 22:03] LABS: Hemoglobin 8.5 g/dL (12.9-16.9)
[2020-07-20 01:28] LABS: Basophils # 0.1 K/mcL (0.0-0.2); Basophils % 1.1 %; Eosinophils # 0.8 K/mcL (0.0-0.6); Eosinophils % 10.5 %; Hematocrit 28.1 % (37.5-50.1); Hemoglobin 8.5 g/dL (12.9-16.9); Immature Granulocytes % 0.8 % (0-4); Lymphocytes # 1.1 K/mcL (0.6-4.6); Lymphocytes % 15.3 %; Mean Corpuscular HGB Conc 30.2 g/dL (31.6-35.5); Mean Corpuscular Hemoglobin 26.5 pg (28.0-33.3); Mean Corpuscular Volume 87.5 fL (83.0-100.0); Mean Platelet Volume 9.2 fL (9.4-12.4); Monocytes # 0.7 K/mcL (0.0-1.3); Monocytes % 10.2 %; Neutrophils # 4.5 K/mcL (1.6-8.9); Platelet Count 274 K/mcL (140-400); Red Blood Count 3.21 M/mcL (4.19-5.50); Segmented Neutrophils % 62.1 %; White Blood Count 7.2 K/mcL (4.3-11.1)
[2020-07-20 01:49] LABS: Alanine Aminotransferase 7 Units/L (7-52); Albumin/Globulin Ratio 1.2 (1.1-2.2); Alkaline Phosphatase 74 Units/L (34-104); Aspartate Amino Transferase 10 Units/L (13-39); BUN/Creatinine Ratio 22 (6-26); Bilirubin,Total 0.6 mg/dL (0.3-1.0); Blood Urea Nitrogen 19 mg/dL (8-23); Calcium 8.6 mg/dL (8.6-10.3); Carbon Dioxide 22 mEq/L (23-29); Chloride 106 mEq/L (98-107); Globulin 2.6 g/dL (2.4-3.5); Glucose 96 mg/dL (70-105); Osmolality,Calculated 282 (280-300); Phosphorous 3.7 mg/dL (2.7-4.5); Potassium 4.1 mEq/L (3.5-5.1); Sodium 135 mEq/L (136-145); Total Protein 5.6 g/dL (6.4-8.9); eGFR For African Americans > 60 (> 60); eGFR For Non-African Americans > 60 (> 60)
[2020-07-20] MEDS: Pantoprazole 40 MG VIAL IVP SCH ×2 (05:27→18:29)
[2020-07-20] MEDS: Budesonide/Formoterol 80/4.5 1 PUFF INH IH SCH ×2 (07:36→20:02)
[2020-07-20] MEDS ORDERED: MOM Conc 10 ML UD.LIQ PO ONE (09:04)
[2020-07-20] MEDS ORDERED: *HR* Dextrose 50 % in Water (Vial) 50 ML VIAL IVP PRN (09:18)
[2020-07-20] MEDS ORDERED: D5% in Water 1,000 ML IVC PRN (09:18)
[2020-07-20] MEDS ORDERED: Dextrose Gel 15 GM/37.5 ML TUBE PO PRN ×2 (09:18)
[2020-07-20] MEDS: Multivit/Ca/Min/Fe/FA 1 TAB TABLET PO SCH (09:46)
[2020-07-20] MEDS: Metoprolol XL (24 HR) Succ 25 MG TAB.ER.24H PO SCH (09:46)
[2020-07-20] MEDS: Artificial Tears SOLN 15 ML BOTTLE BOTH EYES SCH ×2 (09:46→21:52)
[2020-07-20] MEDS: Cyanocobalamin (B-12) 1,000 MCG TABLET PO SCH (09:46)
[2020-07-20] MEDS: Sennosides/Docusate Sodium TABLET PO SCH ×2 (09:46→23:34)
[2020-07-20] MEDS: Nystatin POWDER 30 GM BOTTLE TP SCH ×2 (09:46→21:53)
[2020-07-20] MEDS: polyethylene glycoL 3350 17 GM POWD.PACK PO SCH (09:46)
[2020-07-20] MEDS: Ipratropium/Albuterol Neb 3 ML IH SCH ×5 (10:31→23:42)
[2020-07-20 10:37] LABS: ABG Base Excess 2 mEq/L (-2 to 3); ABG HCO3 27 mEq/L (21-27); ABG Oxygen Saturation 97 % (95-98); ABG PCO2 43 mmHg (35-45); ABG PH 7.41 pH Units (7.32-7.45); ABG PO2 95 mmHg (85-104); ABG TCO2 28 mEq/L (20-26)
[2020-07-20] MEDS ORDERED: Ondansetron 4 MG/2 ML VIAL IVP PRN (18:33)
[2020-07-20] MEDS ORDERED: levoFLOXacin 750 MG TABLET PO SCH (18:45)
[2020-07-20] MEDS: QUEtiapine Fumarate 25 MG TABLET PO SCH (23:33)
[2020-07-21] MEDS ORDERED: Piperacillin/Tazobactam 3.375 GM in 0.9 % Sodium Chloride Mini Bag 100 ML IVPB SCH
[2020-07-21] MEDS: Doxycycline 100 MG CAPSULE PO SCH ×3 (00:20→21:02)
[2020-07-21] MEDS: Ipratropium/Albuterol Neb 3 ML IH SCH ×3 (03:50→12:04)
[2020-07-21 05:05] LABS: Basophils # 0.1 K/mcL (0.0-0.2); Basophils % 1.1 %; Eosinophils # 0.5 K/mcL (0.0-0.6); Eosinophils % 7.9 %; Hematocrit 28.2 % (37.5-50.1); Hemoglobin 8.5 g/dL (12.9-16.9); Immature Granulocytes % 0.5 % (0-4); Lymphocytes # 0.9 K/mcL (0.6-4.6); Lymphocytes % 12.9 %; Mean Corpuscular HGB Conc 30.1 g/dL (31.6-35.5); Mean Corpuscular Hemoglobin 26.6 pg (28.0-33.3); Mean Corpuscular Volume 88.4 fL (83.0-100.0); Mean Platelet Volume 9.6 fL (9.4-12.4); Monocytes # 0.6 K/mcL (0.0-1.3); Monocytes % 9.2 %; Neutrophils # 4.5 K/mcL (1.6-8.9); Platelet Count 286 K/mcL (140-400); Red Blood Count 3.19 M/mcL (4.19-5.50); Red Cell Distribution Width 15.9 % (11.5-14.5); Segmented Neutrophils % 68.4 %; White Blood Count 6.6 K/mcL (4.3-11.1)
[2020-07-21 05:26] LABS: BUN/Creatinine Ratio 21 (6-26); Blood Urea Nitrogen 15 mg/dL (8-23); Calcium 8.6 mg/dL (8.6-10.3); Carbon Dioxide 25 mEq/L (23-29); Chloride 106 mEq/L (98-107); Glucose 85 mg/dL (70-105); Osmolality,Calculated 284 (280-300); Phosphorous 3.7 mg/dL (2.7-4.5); Potassium 4.1 mEq/L (3.5-5.1); Sodium 137 mEq/L (136-145); eGFR For African Americans > 60 (> 60); eGFR For Non-African Americans > 60 (> 60)
[2020-07-21] MEDS: Pantoprazole 40 MG VIAL IVP SCH ×2 (05:40→16:56)
[2020-07-21] MEDS: Budesonide/Formoterol 80/4.5 1 PUFF INH IH SCH ×2 (08:29→20:02)
[2020-07-21] MEDS: Multivit/Ca/Min/Fe/FA 1 TAB TABLET PO SCH (08:42)
[2020-07-21] MEDS: Nystatin POWDER 30 GM BOTTLE TP SCH ×2 (08:42→21:03)
[2020-07-21] MEDS: polyethylene glycoL 3350 17 GM POWD.PACK PO SCH (08:42)
[2020-07-21] MEDS: Sennosides/Docusate Sodium TABLET PO SCH ×2 (08:43→21:02)
[2020-07-21] MEDS: Metoprolol XL (24 HR) Succ 25 MG TAB.ER.24H PO SCH (08:43)
[2020-07-21] MEDS: Cyanocobalamin (B-12) 1,000 MCG TABLET PO SCH (08:43)
[2020-07-21] MEDS: Artificial Tears SOLN 15 ML BOTTLE BOTH EYES SCH ×2 (09:57→21:03)
[2020-07-21 11:21] LABS: Influenza A PCR Negative (Negative); Influenza B PCR Negative (Negative); Resp. Syncytial Virus PCR Negative (Negative)
[2020-07-21 11:48] LABS: SARS-CoV-2 by PCR (In House) Positive (Negative)
[2020-07-21] MEDS: Ipratropium 1 PUFF INHALER IH SCH ×3 (15:56→23:21)
[2020-07-21] MEDS: QUEtiapine Fumarate 25 MG TABLET PO SCH (21:02)
[2020-07-22] MEDS: Ipratropium 1 PUFF INHALER IH SCH ×5 (04:53→20:33)
[2020-07-22] MEDS: Pantoprazole 40 MG VIAL IVP SCH ×2 (05:08→18:48)
[2020-07-22 07:13] LABS: Basophils # 0.1 K/mcL (0.0-0.2); Basophils % 1.1 %; Eosinophils # 0.7 K/mcL (0.0-0.6); Eosinophils % 10.1 %; Hematocrit 29.1 % (37.5-50.1); Hemoglobin 8.9 g/dL (12.9-16.9); Immature Granulocytes % 0.5 % (0-4); Lymphocytes # 0.8 K/mcL (0.6-4.6); Lymphocytes % 10.7 %; Mean Corpuscular HGB Conc 30.6 g/dL (31.6-35.5); Mean Corpuscular Volume 88.2 fL (83.0-100.0); Mean Platelet Volume 9.4 fL (9.4-12.4); Monocytes # 0.7 K/mcL (0.0-1.3); Monocytes % 9.7 %; Platelet Count 280 K/mcL (140-400); Segmented Neutrophils % 67.9 %; White Blood Count 7.4 K/mcL (4.3-11.1)
[2020-07-22 07:31] LABS: BUN/Creatinine Ratio 24 (6-26); Blood Urea Nitrogen 19 mg/dL (8-23); Calcium 8.9 mg/dL (8.6-10.3); Carbon Dioxide 24 mEq/L (23-29); Chloride 106 mEq/L (98-107); Glucose 92 mg/dL (70-105); Magnesium 2.1 mg/dL (1.6-2.6); Osmolality,Calculated 288 (280-300); Sodium 138 mEq/L (136-145); eGFR For African Americans > 60 (> 60); eGFR For Non-African Americans > 60 (> 60)
[2020-07-22] MEDS: Budesonide/Formoterol 80/4.5 1 PUFF INH IH SCH ×2 (07:57→20:33)
[2020-07-22] MEDS: Artificial Tears SOLN 15 ML BOTTLE BOTH EYES SCH (10:16)
[2020-07-22] MEDS: Cyanocobalamin (B-12) 1,000 MCG TABLET PO SCH (10:37)
[2020-07-22] MEDS: Multivit/Ca/Min/Fe/FA 1 TAB TABLET PO SCH (10:37)
[2020-07-22] MEDS: Metoprolol XL (24 HR) Succ 25 MG TAB.ER.24H PO SCH (10:38)
[2020-07-22] MEDS: polyethylene glycoL 3350 17 GM POWD.PACK PO SCH (10:39)
[2020-07-22] MEDS: Sennosides/Docusate Sodium TABLET PO SCH (10:39)
[2020-07-22] MEDS: Doxycycline 100 MG CAPSULE PO SCH (10:40)
[2020-07-22] MEDS ORDERED: Ringers Solution, Lactated 1,000 ML IVC SCH (13:45)
[2020-07-22 17:49] LABS: Influenza A PCR Negative (Negative); Influenza B PCR Negative (Negative); Resp. Syncytial Virus PCR Negative (Negative)
[2020-07-22 17:57] LABS: SARS-CoV-2 by PCR (In House) Positive (Negative)
[2020-07-22] MEDS: Nystatin POWDER 30 GM BOTTLE TP SCH (18:48)
[2020-07-22 19:59] VITALS: BP 111/65
== END 2020-07-22 20:53 | DRG 871 ==
LOC: EMEROOARM 03:35 → 3NENU 03:35 → SUATTDRO 14:09
PROVIDERS: ADMIT Internal Medicine; ATTEND Internal Medicine